=== PATIENT | male | born 1950 | race Caucasian/White ===

== ENCOUNTER 2020-05-02 12:48 | Inpatient (IN) | payer MEDICARE ==
[2020-05-02] MEDS ORDERED: Sodium Chloride 0.9% 1000 ML 1,000 ML IV STA (12:53)
[2020-05-02] MEDS ORDERED: Sodium Chloride 0.9% 1000 ML 1,000 ML ONE (13:02)
[2020-05-02 13:31] LABS: Absolute Neutrophil Ct (ANC) 2.21 (1.4-6.9); BASOPHIL % 0.7 % (0.0-0.4); Basophil (Absolute #) 0.02 (0-0.4); Eosinophil (Absolute #) 0.03 (0-0.5); Hematocrit 41.9 % (42-50); Hemoglobin 14.9 gm/dl (12.5-18.0); Lymphocyte (Absolute #) 0.39 (1.0-4.6); Lymphocytes % 13.6 % (24.0-44.0); Mean Cell Volume 93.3 fl (78-100); Mean Corpuscular Hemoglobin 33.2 pg (26-32); Mean Corpuscular Hgb Concent. 35.6 g/dl (32-36); Monocyte (Absolute #) 0.22 (0.0-1.3); Monocytes % 7.7 % (0.0-12.0); Platelet Count 100 K/mm3 (150-450); Red Blood Count 4.49 M/mm3 (4.1-5.6); White Blood Count 2.9 K/mm3 (4.0-10.5)
[2020-05-02 13:52] LABS: ALBUMIN 2.9 g/dL (3.5-5.0); ALKALINE PHOSPHATASE 66 U/L (38-126); AMYLASE 77 U/L (30-110); ANION GAP 9.3 MEQ/L (5-15); BLOOD UREA NITROGEN 19 mg/dL (9-20); CHLORIDE 83 mmol/L (98-107); CK-Creatinine Phosphokinase 56 U/L (55-170); Calcium 8.4 mg/dL (8.4-10.2); Carbon Dioxide 35 mmol/L (22-30); EST GLOMERULAR FILTRATION RATE > 60.0 ML/MIN; Glucose 123 mg/dL (74-106); LIPASE 250 U/L (23-300); MAGNESIUM 1.7 mg/dL (1.6-2.3); NT PRO BNP 908 pg/mL (0-900); SGOT/AST 43 U/L (17-59); SGPT/ALT 19 U/L (0-50); SODIUM 125 mmol/L (137-145); Total Protein 5.6 g/dL (6.3-8.2)
[2020-05-02 13:53] LABS: Potassium 2.3 mmol/L (3.5-5.1)
[2020-05-02] MEDS ORDERED: K-LYTE 25 MEQ PO ONE (14:28)
[2020-05-02 14:35] LABS: INR 1.21 (0.8-3.0); PROTIME 13.7 SECONDS (8.83-12.87)
[2020-05-02] MEDS ORDERED: K-LYTE 25 MEQ ONE (14:35)
[2020-05-02 14:42] LABS: Slide Review 1 YES
[2020-05-02 15:23] LABS: Appearance CLEAR (CLEAR); Bacteria RARE /HPF (NEGATIVE); Bilirubin SMALL (NEGATIVE); Blood SMALL Ery/ul (0-5); Epithelial Cells RARE /HPF (FEW); Glucose NEGATIVE (NEGATIVE); Ketones NEGATIVE (NEGATIVE); Leukocyte Esterase NEGATIVE (NEGATIVE); Nitrite NEGATIVE (NEGATIVE); Protein,Urine Dip NEGATIVE (Negative); RBC 0-2 /HPF (0-2); Urobilinogen 4 mg/dL (0-1)
[2020-05-02 15:35] LABS: Amphetamine,Urine NEGATIVE (NEGATIVE); Barbiturate,Urine NEGATIVE (NEGATIVE); Benzodiazepine,Urine NEGATIVE (NEGATIVE); Cocaine,Urine NEGATIVE (NEGATIVE); Methadone,Urine NEGATIVE (NEGATIVE); Opiate,Urine NEGATIVE (NEGATIVE); PCP,Urine NEGATIVE (NEGATIVE); THC,Urine NEGATIVE (NEGATIVE)
[2020-05-02 16:20] LABS: INFLUENZA A NEGATIVE (NEGATIVE); INFLUENZA B NEGATIVE (NEGATIVE); RESPIRATORY SYNCTIAL VIRUS NEGATIVE (Negative)
--- NOTE | 2020-05-02 16:45 | ERPHSYRPT ---
- History of Present Illness Time Seen by Provider: 05/02/20 13:00 Patient Subjective Stated Complaint: weakness Triage Nursing Assessment: Patient brought into ED via EMS and transferred to bed with assist of 3. Patient A+O X3. Patient's skin pink, warm and dry. Patient complains of weakness for the past 5 days. Patient states he hasn't been able to get off of his cough for 5 days. Patient also states he fell trying to get up 5 days ago hitting his head. Patient has scabbed abrasion to right side of forehead with scab and left elbow skin tear that is scabbed over. Patient denies pain or discomfort. Lung clear a/p mari. No edema noted. Patient states he is a daily drinker of a pint of boLoglyan and attempted to stop drinking 5 days ago. Physician History: Amrik is a 70-year-old white male longstanding alcoholic who has not drank for 5 days who presents with generalized weakness and he has been n.p.o. for 3 days as well as extreme weakness. He has a fall approximately 5 days ago and then later was unable to get off the couch for 3 days. Their history is difficult to obtain. Timing/Duration: day(s) (5) Severity: moderate Associated Symptoms: denies symptoms, loss of appetite, weakness Allergies/Adverse Reactions: No Known Drug Allergies Allergy (Unverified 05/02/20 12:52) Home Medications: No Reportable Medications [No Reported Medications] 05/02/20 [History] Hx Influenza Vaccination/Date Given: Yes Hx Pneumococcal Vaccination/Date Given: No Immunizations Up to Date: Yes Travel Risk - International Travel Have you traveled outside of the country in past 3 weeks: No - Coronavirus Screening Are you exhibiting any of the following symptoms?: No Close contact with a COVID-19 positive Pt in past 14-21 Days: No - Review of Systems Constitutional: Lethargy, Malaise, Weakness Eyes: No Symptoms Ears, Nose, & Throat: No Symptoms Respiratory: No Symptoms Cardiac: No Symptoms Abdominal/Gastrointestinal: Appetite Changes Genitourinary Symptoms: No Symptoms Musculoskeletal: Arthralgias, Joint Pain, Myalgias Neurological: Dizziness Psychological: Alcohol Abuse Endocrine: No Symptoms Hematologic/Lymphatic: No Symptoms Immunological/Allergic: No Symptoms - Past Medical History Neurological History: No Pertinent History ENT History: No Pertinent History Cardiac History: Hypertension Respiratory History: No Pertinent History Endocrine Medical History: No Pertinent History Musculoskeletal History: No Pertinent History GI Medical History: No Pertinent History History: No Pertinent History Psycho-Social History: No Pertinent History Male Reproductive Disorders: No Pertinent History - Past Surgical History Past Surgical History: Yes Neuro Surgical History: No Pertinent History Cardiac: No Pertinent History Respiratory: No Pertinent History Gastrointestinal: No Pertinent History Genitourinary: No Pertinent History Musculoskeletal: No Pertinent History Male Surgical History: No Pertinent History Other Surgical History: Left eye surgery-ocular lens implant - Social History Smoking Status: Current every day smoker How long have you smoked: years Exposure to second hand smoke: No Drug Use: none Patient Lives Alone: Yes - Nursing Vital Signs Nursing Vital Signs: Initial Vital Signs Temperature 98.6 F 05/02/20 12:53 Pulse Rate 132 H 05/02/20 12:53 Respiratory Rate 20 05/02/20 12:53 Blood Pressure 105/82 05/02/20 12:53 O2 Sat by Pulse Oximetry 100 05/02/20 12:53 Pain Scale Pain Intensity 0 - Physical Exam General Appearance: moderate distress Eye Exam: PERRL/EOMI, eyes nml inspection Ears, Nose, Throat Exam: dry mucous membranes Neck Exam: normal inspection, non-tender, supple, full range of motion Respiratory Exam: rhonchi, No respiratory distress Cardiovascular Exam: regular rate/rhythm, normal heart sounds Gastrointestinal/Abdomen Exam: tenderness Extremity Exam: normal inspection, normal range of motion Neurologic Exam: alert, disoriented, confusion, depressed mood/affect, motor weakness Skin Exam: other (Skin tears) SpO2 Interpretation: normal SpO2: 96 O2 Delivery: Room Air - Course Nursing assessment & vital signs reviewed: Yes EKG Interpreted by Me: RATE ([id number]), Sinus Tach, Non-specific ST Changes, Other (Many) - CT Exams Head CT Interpretation: Negative, Tele-radiologist Report Abdomen/Pelvis CT Interpretation: Negative, Tele-radiologist Report Ordered Tests: Active Orders 24 hr Category Date Time Status EKG-ER Only STAT Care 05/02/20 12:53 Active IV Insertion STAT Care 05/02/20 12:53 Active ABDOMEN AND PELVIS W/0 CONTRAS [CT] Stat Exams 05/02/20 12:54 Taken CHEST 1 VIEW (PORTABLE) Stat Exams 05/02/20 12:54 Taken HEAD WITHOUT CONTRAST [CT] Stat Exams 05/02/20 14:33 Taken AMYLASE [facility] 05/02/20 13:10 Completed BLOOD CULTURE [facility] 05/02/20 13:21 Received CBC W DIFF [facility] 05/02/20 13:10 Completed CK-Creatinine Phosphokinase [facility] 05/02/20 13:10 Completed CMP [facility] 05/02/20 13:10 Completed D-DIMER QUANTITATIVE [facility] 05/02/20 13:10 Completed Erythrocyte Sedimentation Rate [facility] 05/02/20 13:10 Completed LIPASE [facility] 05/02/20 13:10 Completed Lactic Acid [facility] 05/02/20 13:16 Completed MAGNESIUM [facility] 05/02/20 13:10 Completed NT PRO BNP [facility] 05/02/20 13:10 Completed PROTIME WITH INR [facility] 05/02/20 13:10 Completed TROPONIN Q3H Lab 05/02/20 13:00 Completed TROPONIN Q3H Lab 05/02/20 15:39 Completed TROPONIN Q3H Lab 05/02/20 19:00 Ordered TROPONIN Q3H Lab 05/02/20 22:00 Ordered TROPONIN Q3H Lab 05/03/20 01:00 Ordered UA W/RFX UR CULTURE [facility] 05/02/20 15:00 Completed Urine Triage Profile [facility] 05/02/20 15:00 Completed Medication Summary Discontinued Medications Generic Name Dose Route Start Last Admin Trade Name Magdalenoq PRN Reason Stop Dose Admin Sodium Chloride 1,000 mls @ 999 mls/hr 05/02/20 12:53 05/02/20 14:33 Sodium Chloride 0.9% 1000 Ml IV 05/02/20 13:53 Infused .Q1H1M STA Infusion Sodium Chloride Confirm 05/02/20 13:02 Sodium Chloride 0.9% 1000 Ml Administered 05/02/20 13:03 Dose 1,000 mls @ ud .ROUTE .STK-MED ONE Potassium Bicarbonate 50 meq 05/02/20 14:28 05/02/20 14:36 K-Lyte 25 Meq PO 05/02/20 14:29 50 meq STAT ONE Administration Potassium Bicarbonate Confirm 05/02/20 14:35 K-Lyte 25 Meq Administered 05/02/20 14:36 Dose 50 meq .ROUTE .STK-MED ONE Lab/Rad Data: Laboratory Result Diagrams 05/02/20 13:10 05/02/20 13:10 Laboratory Results 05/02/20 05/02/20 05/02/20 Range/Units 15:39 15:34 15:00 WBC (4.0-10.5) K/mm3 RBC (4.1-5.6) M/mm3 Hgb (12.5-18.0) gm/dl Hct (42-50) % MCV (78-100) fl MCH (26-32) pg MCHC (32-36) g/dl RDW (11.5-14.0) % Plt Count (150-450) K/mm3 MPV (7.5-11.0) fl Gran % (36.0-66.0) % Eos # (Auto) (0-0.5) Absolute Lymphs (auto) (1.0-4.6) Absolute Monos (auto) (0.0-1.3) Lymphocytes % (24.0-44.0) % Monocytes % (0.0-12.0) % Eosinophils % (0.00-5.0) % Basophils % (0.0-0.4) % Absolute Granulocytes (1.4-6.9) Basophils # (0-0.4) ESR (0-15) mm/hr PT (8.83-12.87) SECONDS INR (0.8-3.0) D-Dimer (215-500) ng/mL Sodium (137-145) mmol/L Potassium (3.5-5.1) mmol/L Chloride (98-107) mmol/L Carbon Dioxide (22-30) mmol/L Anion Gap (5-15) MEQ/L BUN (9-20) mg/dL Creatinine (0.66-1.25) mg/dL Estimated GFR ML/MIN Glucose (74-106) mg/dL Lactic Acid (0.4-2.0) Calcium (8.4-10.2) mg/dL Magnesium (1.6-2.3) mg/dL Total Bilirubin (0.2-1.3) mg/dL AST (17-59) U/L ALT (0-50) U/L Alkaline Phosphatase (38-126) U/L Creatine Kinase (55-170) U/L Troponin I < 0.012 (0.000-0.034) ng/mL NT-Pro-B Natriuret Pep (0-900) pg/mL Serum Total Protein (6.3-8.2) g/dL Albumin (3.5-5.0) g/dL Amylase (30-110) U/L Lipase (23-300) U/L Urine Color (YELLOW) Urine Appearance (CLEAR) Urine pH (5-6) Ur Specific Glen (1.005-1.025) Urine Protein (Negative) Urine Ketones (NEGATIVE) Urine Blood (0-5) Pino/ul Urine Nitrite (NEGATIVE) Urine Bilirubin (NEGATIVE) Urine Urobilinogen (0-1) mg/dL Ur Leukocyte Esterase (NEGATIVE) Urine WBC (Auto) (0-5) /HPF Urine RBC (Auto) (0-2) /HPF U Epithel Cells (Auto) (FEW) /HPF Urine Bacteria (Auto) (NEGATIVE) /HPF Urine Culture Reflexed (NO) Urine Glucose (NEGATIVE) mg/dL Urine Opiates Level NEGATIVE (NEGATIVE) Ur Methadone NEGATIVE (NEGATIVE) Urine Barbiturates NEGATIVE (NEGATIVE) Ur Phencyclidine (PCP) NEGATIVE (NEGATIVE) Urine Amphetamine NEGATIVE (NEGATIVE) U Benzodiazepine Level NEGATIVE (NEGATIVE) Urine Cocaine NEGATIVE (NEGATIVE) Urine Marijuana (THC) NEGATIVE (NEGATIVE) Influenza Type A Ag NEGATIVE (NEGATIVE) Influenza Type B Ag NEGATIVE (NEGATIVE) RSV (PCR) NEGATIVE (Negative) SARS-CoV-2 (PCR) NEGATIVE (NEGATIVE) Slides for Path Review 05/02/20 05/02/20 05/02/20 Range/Units 15:00 13:16 13:10 WBC (4.0-10.5) K/mm3 RBC (4.1-5.6) M/mm3 Hgb (12.5-18.0) gm/dl Hct (42-50) % MCV (78-100) fl MCH (26-32) pg MCHC (32-36) g/dl RDW (11.5-14.0) % Plt Count (150-450) K/mm3 MPV (7.5-11.0) fl Gran % (36.0-66.0) % Eos # (Auto) (0-0.5) Absolute Lymphs (auto) (1.0-4.6) Absolute Monos (auto) (0.0-1.3) Lymphocytes % (24.0-44.0) % Monocytes % (0.0-12.0) % Eosinophils % (0.00-5.0) % Basophils % (0.0-0.4) % Absolute Granulocytes (1.4-6.9) Basophils # (0-0.4) ESR (0-15) mm/hr PT (8.83-12.87) SECONDS INR (0.8-3.0) D-Dimer 499 (215-500) ng/mL Sodium (137-145) mmol/L Potassium (3.5-5.1) mmol/L Chloride (98-107) mmol/L Carbon Dioxide (22-30) mmol/L Anion Gap (5-15) MEQ/L BUN (9-20) mg/dL Creatinine (0.66-1.25) mg/dL Estimated GFR ML/MIN Glucose (74-106) mg/dL Lactic Acid 1.5 (0.4-2.0) Calcium (8.4-10.2) mg/dL Magnesium (1.6-2.3) mg/dL Total Bilirubin (0.2-1.3) mg/dL AST (17-59) U/L ALT (0-50) U/L Alkaline Phosphatase (38-126) U/L Creatine Kinase (55-170) U/L Troponin I (0.000-0.034) ng/mL NT-Pro-B Natriuret Pep (0-900) pg/mL Serum Total Protein (6.3-8.2) g/dL Albumin (3.5-5.0) g/dL Amylase (30-110) U/L Lipase (23-300) U/L Urine Color CHECO (YELLOW) Urine Appearance CLEAR (CLEAR) Urine pH 6.0 (5-6) Ur Specific Glen 1.020 (1.005-1.025) Urine Protein NEGATIVE (Negative) Urine Ketones NEGATIVE (NEGATIVE) Urine Blood SMALL (0-5) Pino/ul Urine Nitrite NEGATIVE (NEGATIVE) Urine Bilirubin SMALL (NEGATIVE) Urine Urobilinogen 4 (0-1) mg/dL Ur Leukocyte Esterase NEGATIVE (NEGATIVE) Urine WBC (Auto) 3-5 (0-5) /HPF Urine RBC (Auto) 0-2 (0-2) /HPF U Epithel Cells (Auto) RARE (FEW) /HPF Urine Bacteria (Auto) RARE (NEGATIVE) /HPF Urine Culture Reflexed NO (NO) Urine Glucose NEGATIVE (NEGATIVE) mg/dL Urine Opiates Level (NEGATIVE) Ur Methadone (NEGATIVE) Urine Barbiturates (NEGATIVE) Ur Phencyclidine (PCP) (NEGATIVE) Urine Amphetamine (NEGATIVE) U Benzodiazepine Level (NEGATIVE) Urine Cocaine (NEGATIVE) Urine Marijuana (THC) (NEGATIVE) Influenza Type A Ag (NEGATIVE) Influenza Type B Ag (NEGATIVE) RSV (PCR) (Negative) SARS-CoV-2 (PCR) (NEGATIVE) Slides for Path Review 05/02/20 05/02/20 05/02/20 Range/Units 13:10 13:10 13:10 WBC (4.0-10.5) K/mm3 RBC (4.1-5.6) M/mm3 Hgb (12.5-18.0) gm/dl Hct (42-50) % MCV (78-100) fl MCH (26-32) pg MCHC (32-36) g/dl RDW (11.5-14.0) % Plt Count (150-450) K/mm3 MPV (7.5-11.0) fl Gran % (36.0-66.0) % Eos # (Auto) (0-0.5) Absolute Lymphs (auto) (1.0-4.6) Absolute Monos (auto) (0.0-1.3) Lymphocytes % (24.0-44.0) % Monocytes % (0.0-12.0) % Eosinophils % (0.00-5.0) % Basophils % (0.0-0.4) % Absolute Granulocytes (1.4-6.9) Basophils # (0-0.4) ESR 22 H (0-15) mm/hr PT 13.7 H (8.83-12.87) SECONDS INR 1.21 (0.8-3.0) D-Dimer (215-500) ng/mL Sodium 125 L (137-145) mmol/L Potassium 2.3 L* (3.5-5.1) mmol/L Chloride 83 L (98-107) mmol/L Carbon Dioxide 35 H (22-30) mmol/L Anion Gap 9.3 (5-15) MEQ/L BUN 19 (9-20) mg/dL Creatinine 1.00 (0.66-1.25) mg/dL Estimated GFR > 60.0 ML/MIN Glucose 123 H (74-106) mg/dL Lactic Acid (0.4-2.0) Calcium 8.4 (8.4-10.2) mg/dL Magnesium 1.7 (1.6-2.3) mg/dL Total Bilirubin 2.40 H (0.2-1.3) mg/dL AST 43 (17-59) U/L ALT 19 (0-50) U/L Alkaline Phosphatase 66 (38-126) U/L Creatine Kinase 56 (55-170) U/L Troponin I (0.000-0.034) ng/mL NT-Pro-B Natriuret Pep 908 H (0-900) pg/mL Serum Total Protein 5.6 L (6.3-8.2) g/dL Albumin 2.9 L (3.5-5.0) g/dL Amylase 77 (30-110) U/L Lipase 250 (23-300) U/L Urine Color (YELLOW) Urine Appearance (CLEAR) Urine pH (5-6) Ur Specific Glen (1.005-1.025) Urine Protein (Negative) Urine Ketones (NEGATIVE) Urine Blood (0-5) Pino/ul Urine Nitrite (NEGATIVE) Urine Bilirubin (NEGATIVE) Urine Urobilinogen (0-1) mg/dL Ur Leukocyte Esterase (NEGATIVE) Urine WBC (Auto) (0-5) /HPF Urine RBC (Auto) (0-2) /HPF U Epithel Cells (Auto) (FEW) /HPF Urine Bacteria (Auto) (NEGATIVE) /HPF Urine Culture Reflexed (NO) Urine Glucose (NEGATIVE) mg/dL Urine Opiates Level (NEGATIVE) Ur Methadone (NEGATIVE) Urine Barbiturates (NEGATIVE) Ur Phencyclidine (PCP) (NEGATIVE) Urine Amphetamine (NEGATIVE) U Benzodiazepine Level (NEGATIVE) Urine Cocaine (NEGATIVE) Urine Marijuana (THC) (NEGATIVE) Influenza Type A Ag (NEGATIVE) Influenza Type B Ag (NEGATIVE) RSV (PCR) (Negative) SARS-CoV-2 (PCR) (NEGATIVE) Slides for Path Review 05/02/20 05/02/20 Range/Units 13:10 13:00 WBC 2.9 L (4.0-10.5) K/mm3 RBC 4.49 (4.1-5.6) M/mm3 Hgb 14.9 (12.5-18.0) gm/dl Hct 41.9 L (42-50) % MCV 93.3 (78-100) fl MCH 33.2 H (26-32) pg MCHC 35.6 (32-36) g/dl RDW 13.0 (11.5-14.0) % Plt Count 100 L (150-450) K/mm3 MPV 11.0 (7.5-11.0) fl Gran % 77.0 H (36.0-66.0) % Eos # (Auto) 0.03 (0-0.5) Absolute Lymphs (auto) 0.39 L (1.0-4.6) Absolute Monos (auto) 0.22 (0.0-1.3) Lymphocytes % 13.6 L (24.0-44.0) % Monocytes % 7.7 (0.0-12.0) % Eosinophils % 1.0 (0.00-5.0) % Basophils % 0.7 (0.0-0.4) % Absolute Granulocytes 2.21 (1.4-6.9) Basophils # 0.02 (0-0.4) ESR (0-15) mm/hr PT (8.83-12.87) SECONDS INR (0.8-3.0) D-Dimer (215-500) ng/mL Sodium (137-145) mmol/L Potassium (3.5-5.1) mmol/L Chloride (98-107) mmol/L Carbon Dioxide (22-30) mmol/L Anion Gap (5-15) MEQ/L BUN (9-20) mg/dL Creatinine (0.66-1.25) mg/dL Estimated GFR ML/MIN Glucose (74-106) mg/dL Lactic Acid (0.4-2.0) Calcium (8.4-10.2) mg/dL Magnesium (1.6-2.3) mg/dL Total Bilirubin (0.2-1.3) mg/dL AST (17-59) U/L ALT (0-50) U/L Alkaline Phosphatase (38-126) U/L Creatine Kinase (55-170) U/L Troponin I < 0.012 (0.000-0.034) ng/mL NT-Pro-B Natriuret Pep (0-900) pg/mL Serum Total Protein (6.3-8.2) g/dL Albumin (3.5-5.0) g/dL Amylase (30-110) U/L Lipase (23-300) U/L Urine Color (YELLOW) Urine Appearance (CLEAR) Urine pH (5-6) Ur Specific Glen (1.005-1.025) Urine Protein (Negative) Urine Ketones (NEGATIVE) Urine Blood (0-5) Pino/ul Urine Nitrite (NEGATIVE) Urine Bilirubin (NEGATIVE) Urine Urobilinogen (0-1) mg/dL Ur Leukocyte Esterase (NEGATIVE) Urine WBC (Auto) (0-5) /HPF Urine RBC (Auto) (0-2) /HPF U Epithel Cells (Auto) (FEW) /HPF Urine Bacteria (Auto) (NEGATIVE) /HPF Urine Culture Reflexed (NO) Urine Glucose (NEGATIVE) mg/dL Urine Opiates Level (NEGATIVE) Ur Methadone (NEGATIVE) Urine Barbiturates (NEGATIVE) Ur Phencyclidine (PCP) (NEGATIVE) Urine Amphetamine (NEGATIVE) U Benzodiazepine Level (NEGATIVE) Urine Cocaine (NEGATIVE) Urine Marijuana (THC) (NEGATIVE) Influenza Type A Ag (NEGATIVE) Influenza Type B Ag (NEGATIVE) RSV (PCR) (Negative) SARS-CoV-2 (PCR) (NEGATIVE) Slides for Path Review YES - Progress Progress: unchanged Discussed with Dr.: Staton - Departure Departure Disposition: In-patient Admission Clinical Impression: Hypokalemia, Hyponatremia, Dehydration Condition: Fair Critical Care Time: No Referrals: DOCTOR,NO FAMILY [Primary Care Provider] -
[2020-05-02] MEDS: Sodium Chloride 0.9% 1000 ML 1,000 ML IV SCH (17:48)
[2020-05-02] MEDS: POTASSIUM CHLORIDE 20 mEq IN WATER 100ML 20 MEQ/100 ML BAG IV SCH ×2 (20:03→23:31)
--- NOTE | 2020-05-02 20:25 | XRAY ---
Indication: Weakness. Status post fall 5 days ago. Multiple contiguous axial images obtained through the head without contrast. Comparison: None Age-appropriate global atrophy and mild periventricular degenerative micro-ischemia bilaterally. No acute intracranial hemorrhage, abnormal extra-axial fluid collection, or mass effect. Fourth ventricle is midline without hydrocephalus. Bony calvarium intact. Partial opacification inferior right mastoid air cells presumed inflammatory. Visualized paranasal sinuses are clear. Impression: 1. Nonacute senile brain. 2. Partial opacification right mastoid air cells presumed inflammatory. Comment: Preliminary interpretation was made by [facility]. No critical discrepancy.
--- NOTE | 2020-05-02 20:31 | XRAY ---
Indication: Anorexia. Weakness. Multiple contiguous axial images obtained through the abdomen and pelvis without contrast as ordered. Comparison: None Lung bases demonstrates minimal bibasilar atelectasis/scarring in medial left base calcified granuloma. No infiltrate or effusion. Heart is not enlarged. Noncontrasted stomach and bowel loops appear nonobstructed. Normal appendix. Scattered sigmoid diverticulosis without diverticulitis. Liver demonstrates diffuse patchy hypoattenuations, possibly due to steatosis. Hepatic masses are not completely excluded on this noncontrast exam. Nonobstructing punctate right renal calculus. No free fluid/air. Remaining gallbladder, pancreas, spleen, adrenal glands, kidneys, ureters, bladder, and uterus appear unremarkable for noncontrast exam. Moderate aortoiliac calcifications without AAA. Osseous structures intact with mild/moderate lower lumbar degenerative disc disease. No ventral or inguinal hernias. Impression: 1. Diffuse patchy hepatic hypoattenuations possibly due to steatosis. Masses not completely excluded on this noncontrast exam. 2. Sigmoid diverticulosis and nonobstructing right renal micro-calculus. 3. Incidental lower lumbar degenerative disc disease better evaluated with outpatient MRI if clinically warranted. Comment: Preliminary interpretation was made by [facility]. No critical discrepancy.
--- NOTE | 2020-05-02 20:31 | XRAY ---
Indication: Pain. Comparison: None Portable chest hyperinflated and clear with incidental medial left base calcified granuloma. Heart is not enlarged. Bony thorax intact.
[2020-05-03 01:31] LABS: Hematocrit 39.4 % (42-50); Hemoglobin 13.7 gm/dl (12.5-18.0); Mean Cell Volume 94.7 fl (78-100); Mean Corpuscular Hemoglobin 32.9 pg (26-32); Mean Corpuscular Hgb Concent. 34.8 g/dl (32-36); Mean Platelet Volume 10.6 fl (7.5-11.0); Platelet Count 96 K/mm3 (150-450); Red Blood Count 4.16 M/mm3 (4.1-5.6); White Blood Count 3.1 K/mm3 (4.0-10.5)
[2020-05-03 01:55] LABS: ALBUMIN 2.7 g/dL (3.5-5.0); ALKALINE PHOSPHATASE 64 U/L (38-126); ANION GAP 6.7 MEQ/L (5-15); BLOOD UREA NITROGEN 17 mg/dL (9-20); CHLORIDE 86 mmol/L (98-107); Calcium 8.3 mg/dL (8.4-10.2); Carbon Dioxide 37 mmol/L (22-30); Creatinine 1 1.02 mg/dL (0.66-1.25); EST GLOMERULAR FILTRATION RATE > 60.0 ML/MIN; Glucose 107 mg/dL (74-106); SGOT/AST 45 U/L (17-59); SGPT/ALT 19 U/L (0-50); SODIUM 126 mmol/L (137-145); Total Protein 5.3 g/dL (6.3-8.2)
[2020-05-03 01:57] LABS: Potassium 2.8 mmol/L (3.5-5.1)
[2020-05-03 04:36] LABS: Eosinophil 5 % (0.00-3.0); Lymphocytes 17 % (24-44); Monocyte 4 % (0.0-12.0); Neutrophils 74 % (36.-66.); Platelet Estimate DECREASED (NORMAL); Total Cells Counted 100
[2020-05-03] MEDS: Sodium Chloride 0.9% 1000 ML 1,000 ML IV SCH ×3 (07:51→21:11)
[2020-05-03] MEDS: K-LYTE 25 MEQ PO SCH (09:21)
--- NOTE | 2020-05-03 21:03 | PCM.HP ---
History of Present Illness - Chief Complaint Chief Complaint: hypokalemia, hyponatremia, dehydration. Date: 05/03/20 History of Present Illness: is a 69 year old male seen and examined today following ER admission for hypokalemia, hyponatremia and dehydration. Patient reports that he was trying to make some lifestyle changes and decided to stop drinking alcohol. He reports he is an everyday drinker and drinks a pint of bourbon daily and that he has done this for more than 40 years. He reports that he remembers falling and that he hit his head on the coffee table. Patient reports that he has some pain where he hit his head but that it has improved. Patient reports he has had a decreased appetite and reports some recent weight loss. Patient reports that he has been depressed. He denies any thoughts of hurting himself or others but at times feels it would be ok if he wasnt around. He denies having a plan to harm himself. Patient reports he has gone through treatment programs before [place] of state. He reports he was sober for 28 days and then 4.5 years. Medications & Allergies Home Medications: Home Medication List No Reportable Medications [No Reported Medications] 05/02/20 [History Confirmed 05/02/20] Allergies/Adverse Reactions: Allergies Allergy/AdvReac Type Severity Reaction Status Date / Time No Known Drug Allergies Allergy Unverified 05/02/20 12:52 - Past Medical History Neurological History: No Pertinent History ENT History: No Pertinent History Cardiac History: Hypertension Respiratory History: No Pertinent History Endocrine Medical History: No Pertinent History Musculoskelatal History: No Pertinent History GI Medical History: Hernia History: No Pertinent History Pyscho-Social History: Anxiety, Depression, Other Male Reproductive Disorders: No Pertinent History Comment: ETOH abuse - Past Surgical History Past Surgical History: Yes Neuro Surgical History: No Pertinent History Cardiac History: No Pertinent History Respiratory Surgery: No Pertinent History GI Surgical History: Hernia Repair Genitourinary Surgical Hx: No Pertinent History Musculskeletal Surgical Hx: No Pertinent History Male Surgical History: No Pertinent History Other Surgical History: Left eye surgery-ocular lens implant - Social History Smoking Status: Current every day smoker How long have you smoked: years Exposure to second hand smoke: No Alcohol: Heavy, Daily Drug Use: none - Physical Exam Vital Signs: Vital Signs - 24 hr Temp Pulse Resp BP Pulse Ox 05/03/20 19:37 97.7 F 82 18 121/80 100 05/03/20 16:00 98.0 F 80 18 120/78 90 L 05/03/20 12:00 98.0 F 74 18 130/78 98 05/03/20 08:00 97.8 F 110 H 18 123/77 98 05/03/20 04:03 97.9 F 82 16 135/89 97 05/03/20 03:53 18 05/03/20 00:00 97.9 F 81 16 115/78 98 Wound Assessment: Skin/Wound Assessment Wound/Incision Assessment Start: 05/02/20 18:19 Text: Status: Active Freq: Q6H Protocol: Document 05/03/20 17:00 BA (Rec: 05/03/20 18:53 BA [id number]) Wound/Incision Assessment Left Arm Wound Assessment Shift Assessment Wound Type Skin Tear Dressing Status Changed Drainage Amount Minimal General Appearance Unapproximated Surrounding Tissue [place] Comment tegaderm Results - Labs Lab/Micro Results: Lab Results-Last 24 Hours 05/02/20 05/03/20 05/03/20 Range/Units 20:10 01:15 01:15 WBC (4.0-10.5) K/mm3 RBC (4.1-5.6) M/mm3 Hgb (12.5-18.0) gm/dl Hct (42-50) % MCV (78-100) fl MCH (26-32) pg MCHC (32-36) g/dl RDW (11.5-14.0) % Plt Count (150-450) K/mm3 MPV (7.5-11.0) fl Segmented Neutrophils (36.-66.) % Lymphocytes (Manual) (24-44) % Monocytes (Manual) (0.0-12.0) % Eosinophils (Manual) (0.00-3.0) % Platelet Estimate (NORMAL) RBC Morphology Sodium 126 L (137-145) mmol/L Potassium 2.8 L* D (3.5-5.1) mmol/L Chloride 86 L (98-107) mmol/L Carbon Dioxide 37 H (22-30) mmol/L Anion Gap 6.7 (5-15) MEQ/L BUN 17 (9-20) mg/dL Creatinine 1.02 (0.66-1.25) mg/dL Estimated GFR > 60.0 ML/MIN Glucose 107 H (74-106) mg/dL Calcium 8.3 L (8.4-10.2) mg/dL Total Bilirubin 2.30 H (0.2-1.3) mg/dL AST 45 (17-59) U/L ALT 19 (0-50) U/L Alkaline Phosphatase 64 (38-126) U/L Troponin I < 0.012 < 0.012 (0.000-0.034) ng/mL Serum Total Protein 5.3 L (6.3-8.2) g/dL Albumin 2.7 L (3.5-5.0) g/dL 05/03/20 05/03/20 Range/Units 01:15 05:50 WBC 3.1 L (4.0-10.5) K/mm3 RBC 4.16 (4.1-5.6) M/mm3 Hgb 13.7 (12.5-18.0) gm/dl Hct 39.4 L (42-50) % MCV 94.7 (78-100) fl MCH 32.9 H (26-32) pg MCHC 34.8 (32-36) g/dl RDW 13.0 (11.5-14.0) % Plt Count 96 L (150-450) K/mm3 MPV 10.6 (7.5-11.0) fl Segmented Neutrophils 74 H (36.-66.) % Lymphocytes (Manual) 17 L (24-44) % Monocytes (Manual) 4 (0.0-12.0) % Eosinophils (Manual) 5 H (0.00-3.0) % Platelet Estimate DECREASED (NORMAL) RBC Morphology NORMAL Sodium (137-145) mmol/L Potassium 3.4 L D (3.5-5.1) mmol/L Chloride (98-107) mmol/L Carbon Dioxide (22-30) mmol/L Anion Gap (5-15) MEQ/L BUN (9-20) mg/dL Creatinine (0.66-1.25) mg/dL Estimated GFR ML/MIN Glucose (74-106) mg/dL Calcium (8.4-10.2) mg/dL Total Bilirubin (0.2-1.3) mg/dL AST (17-59) U/L ALT (0-50) U/L Alkaline Phosphatase (38-126) U/L Troponin I (0.000-0.034) ng/mL Serum Total Protein (6.3-8.2) g/dL Albumin (3.5-5.0) g/dL Microbiology 05/02/20 13:21 Blood Culture - Preliminary Blood NO GROWTH TO DATE 05/02/20 13:21 Blood Culture - Preliminary Blood NO GROWTH TO DATE - Radiology Impressions Radiology Exams & Impressions: Radiology Procedures Category Date Time Status ABDOMEN AND PELVIS W/0 CONTRAS [CT] Stat Exams 05/02/20 12:54 Completed CHEST 1 VIEW (PORTABLE) Stat Exams 05/02/20 12:54 Completed HEAD WITHOUT CONTRAST [CT] Stat Exams 05/02/20 14:33 Completed
[2020-05-03 22:32] LABS: INR 1.22 (0.8-3.0); PROTIME 13.8 SECONDS (8.83-12.87)
[2020-05-03 22:34] LABS: PTT 42.6 SECONDS (24.1-36.1)
[2020-05-04] MEDS: Sodium Chloride 0.9% 1000 ML 1,000 ML IV SCH ×5 (03:56→17:38)
[2020-05-04 05:20] LABS: Absolute Neutrophil Ct (ANC) 1.84 (1.4-6.9); BASOPHIL % 0.8 % (0.0-0.4); Basophil (Absolute #) 0.02 (0-0.4); Eosinophil % 1.9 % (0.00-5.0); Eosinophil (Absolute #) 0.05 (0-0.5); Hematocrit 32.2 % (42-50); Lymphocyte (Absolute #) 0.53 (1.0-4.6); Lymphocytes % 20.2 % (24.0-44.0); Mean Cell Volume 96.7 fl (78-100); Mean Corpuscular Hgb Concent. 34.2 g/dl (32-36); Mean Platelet Volume 10.6 fl (7.5-11.0); Monocyte (Absolute #) 0.19 (0.0-1.3); Monocytes % 7.2 % (0.0-12.0); Neutrophil % 69.9 % (36.0-66.0); Platelet Count 100 K/mm3 (150-450); Red Blood Count 3.33 M/mm3 (4.1-5.6); Red Cell Distribution Width 12.8 % (11.5-14.0); White Blood Count 2.6 K/mm3 (4.0-10.5)
[2020-05-04 05:35] LABS: ALBUMIN 2.2 g/dL (3.5-5.0); BILIRUBIN,TOTAL 1.3 mg/dL (0.2-1.3); Direct Bilirubin 0.2 mg/dL (0.0-0.4); Total Protein 4.3 g/dL (6.3-8.2)
[2020-05-04 05:39] LABS: ALBUMIN 2.3 g/dL (3.5-5.0); ALKALINE PHOSPHATASE 54 U/L (38-126); ANION GAP 5.7 MEQ/L (5-15); BLOOD UREA NITROGEN 10 mg/dL (9-20); CHLORIDE 95 mmol/L (98-107); Calcium 7.7 mg/dL (8.4-10.2); Carbon Dioxide 31 mmol/L (22-30); Creatinine 1 0.78 mg/dL (0.66-1.25); EST GLOMERULAR FILTRATION RATE > 60.0 ML/MIN; Glucose 101 mg/dL (74-106); SGOT/AST 54 U/L (17-59); SGPT/ALT 24 U/L (0-50); SODIUM 129 mmol/L (137-145); Total Protein 4.6 g/dL (6.3-8.2)
[2020-05-04 06:04] LABS: Potassium 2.8 mmol/L (3.5-5.1)
[2020-05-04] MEDS: POTASSIUM CHLORIDE 20 mEq IN WATER 100ML 20 MEQ/100 ML BAG IV SCH ×2 (06:26→08:14)
[2020-05-04 06:42] LABS: Folate (Folic Acid) 2.98 ng/mL (2.76 - >20)
--- NOTE | 2020-05-04 09:02 | PCM.NOTE ---
Date and Time: 05/04/20901 Objective Exam Wound Assessment: Skin/Wound Assessment Wound/Incision Assessment Start: 05/02/20 18:19 Text: Status: Active Freq: Q6H Protocol: Document 05/04/20 05:00 KX (Rec: 05/04/20 05:45 KX [id number]) Wound/Incision Assessment Left Arm Wound Assessment Shift Assessment Wound Type Skin Tear Dressing Status Dry & Intact Comment tegaderm Wound Photo Photo Taken No OBJECTIVE DATA Vital Signs: Vital Signs - 24 hr Temp Pulse Resp BP Pulse Ox 05/04/20 08:00 16 05/04/20 07:49 98.1 F 78 13 134/87 99 05/04/20 04:00 97.5 F 79 18 125/79 99 05/04/20 00:00 98.7 F 80 16 154/97 100 05/03/20 20:00 18 05/03/20 19:37 97.7 F 82 18 121/80 100 05/03/20 16:00 98.0 F 80 18 120/78 90 L 05/03/20 12:00 98.0 F 74 18 130/78 98 Pain Assessment - Last Documented Pain Intensity 0 Intake and Output: Intake & Output 05/01/20 05/02/20 05/03/20 05/04/20 11:59 11:59 11:59 11:59 Intake Total 1121 4297 Output Total 320 1725 Balance 801 2572 Weight 62 kg 64.8 kg Lab Results: Lab Results-Last 24 Hours 05/03/20 05/03/20 05/04/20 Range/Units 22:22 22:22 04:40 WBC 2.6 L (4.0-10.5) K/mm3 RBC 3.33 L (4.1-5.6) M/mm3 Hgb 11.0 L (12.5-18.0) gm/dl Hct 32.2 L (42-50) % MCV 96.7 (78-100) fl MCH 33.0 H (26-32) pg MCHC 34.2 (32-36) g/dl RDW 12.8 (11.5-14.0) % Plt Count 100 L (150-450) K/mm3 MPV 10.6 (7.5-11.0) fl Gran % 69.9 H (36.0-66.0) % Eos # (Auto) 0.05 (0-0.5) Absolute Lymphs (auto) 0.53 L (1.0-4.6) Absolute Monos (auto) 0.19 (0.0-1.3) Lymphocytes % 20.2 L (24.0-44.0) % Monocytes % 7.2 (0.0-12.0) % Eosinophils % 1.9 (0.00-5.0) % Basophils % 0.8 (0.0-0.4) % Absolute Granulocytes 1.84 (1.4-6.9) Basophils # 0.02 (0-0.4) PT 13.8 H (8.83-12.87) SECONDS INR 1.22 (0.8-3.0) APTT 42.6 H (24.1-36.1) SECONDS Sodium (137-145) mmol/L Potassium (3.5-5.1) mmol/L Chloride (98-107) mmol/L Carbon Dioxide (22-30) mmol/L Anion Gap (5-15) MEQ/L BUN (9-20) mg/dL Creatinine (0.66-1.25) mg/dL Estimated GFR ML/MIN Glucose (74-106) mg/dL Calcium (8.4-10.2) mg/dL Total Bilirubin (0.2-1.3) mg/dL Direct Bilirubin (0.0-0.4) mg/dL AST (17-59) U/L ALT (0-50) U/L Alkaline Phosphatase (38-126) U/L Ammonia < 9 L (9-30) umol/L Serum Total Protein (6.3-8.2) g/dL Albumin (3.5-5.0) g/dL Vitamin B12 (239-931) pg/mL Folic Acid (2.76 - >20) ng/mL Slides for Path Review YES 05/04/20 05/04/20 05/04/20 Range/Units 04:40 04:40 04:40 WBC (4.0-10.5) K/mm3 RBC (4.1-5.6) M/mm3 Hgb (12.5-18.0) gm/dl Hct (42-50) % MCV (78-100) fl MCH (26-32) pg MCHC (32-36) g/dl RDW (11.5-14.0) % Plt Count (150-450) K/mm3 MPV (7.5-11.0) fl Gran % (36.0-66.0) % Eos # (Auto) (0-0.5) Absolute Lymphs (auto) (1.0-4.6) Absolute Monos (auto) (0.0-1.3) Lymphocytes % (24.0-44.0) % Monocytes % (0.0-12.0) % Eosinophils % (0.00-5.0) % Basophils % (0.0-0.4) % Absolute Granulocytes (1.4-6.9) Basophils # (0-0.4) PT (8.83-12.87) SECONDS INR (0.8-3.0) APTT (24.1-36.1) SECONDS Sodium 129 L (137-145) mmol/L Potassium 2.8 L* (3.5-5.1) mmol/L Chloride 95 L (98-107) mmol/L Carbon Dioxide 31 H (22-30) mmol/L Anion Gap 5.7 (5-15) MEQ/L BUN 10 (9-20) mg/dL Creatinine 0.78 (0.66-1.25) mg/dL Estimated GFR > 60.0 ML/MIN Glucose 101 (74-106) mg/dL Calcium 7.7 L (8.4-10.2) mg/dL Total Bilirubin 1.30 1.30 (0.2-1.3) mg/dL Direct Bilirubin 0.2 (0.0-0.4) mg/dL AST 54 55 (17-59) U/L ALT 24 22 (0-50) U/L Alkaline Phosphatase 54 54 (38-126) U/L Ammonia (9-30) umol/L Serum Total Protein 4.6 L 4.3 L (6.3-8.2) g/dL Albumin 2.3 L 2.2 L (3.5-5.0) g/dL Vitamin B12 857 (239-931) pg/mL Folic Acid 2.98 (2.76 - >20) ng/mL Slides for Path Review Radiology Exams: Radiology Procedures Category Date Time Status ABDOMEN AND PELVIS W/0 CONTRAS [CT] Stat Exams 05/02/20 12:54 Completed CHEST 1 VIEW (PORTABLE) Stat Exams 05/02/20 12:54 Completed HEAD WITHOUT CONTRAST [CT] Stat Exams 05/02/20 14:33 Completed Multi-Disciplinary Progress Notes: Multi-Disciplinary Progress Notes 05/03/20 15:10 (created 05/03/20 15:55) Case Management Note by Sarah Jonas DR. ROUNDED AND EVALUATED, REPORTS THAT SHE WOULD LIKE TO TRANSITION PATIENT WHEN MEDICALLY READY FOR DISCHARGE TO AN INPT ALCOHOL REHAB PROGRAM. PT HAS BEEN TO [facility] IN THE PAST FOR TREATMENT, WELL ANOTHER FACILITY. CALL TO [facility] - THEY DO NOT OFFER. CALL TO [facility] - THEY ARE CLOSED SINCE January/ - CALL TO NUMEROUS FACILITIES FROM [place] AND NO BEDS AVAILABLE OR THEY DO NOT ACCEPT PT INSURANCE. CALL TO [place] @ [facility] THEY TOO HAVE A 3 MONTH WAIT LIST FOR THEIR PROGRAM, BUT COULD ACCEPT THE PATIENT TO A MEDICAL FLOOR AND TREAT HIM MEDICALLY, HAVE A PSYCHIATRIST/THERAPIST EVALUATE HIM FOR THE PROGRAM, AND OFFER SERVICES TO [place] THE GAP UNTIL HE COULD GO TO INPT REHAB. DISCUSSED WITH PT, HIS BROTHER AT BEDSIDE. PT/BROTHER BOTH IN AGREEMENT THAT THIS WOULD BE BEST SCENARIO AT THIS TIME. INTERESTED IN GOING TO [facility] IF THEY CAN ACCEPT PT. FAXED REFERRAL TO [place] FOR PROVIDER TO REVIEW. IF PT CAN BE ACCEPTED [employer] TO CALL M.D. AND NOTIFY. PROVIDED [place] WITH [employer] PHONE NUMBER [employer] CASE MANAGEMENT. Initialized on 05/03/20 15:55 - END OF NOTE 05/03/20 13:30 Case Management Note by Crissy La WHILE TALKING WITH PATIENT- [facility] REVIEWED ER RECORD- NO NOTE MADE THAT ER HAD M[facility] CONTACT WITH [facility]. NOTIFIED [place]- [facility] BED CONTROL TODAY THAT PATIENT IS HERE. THEY REQUESTED RECORDS BE FAXED TO THEM AT [phone]. RECORDS FAXED AT THIS TIME. Initialized on 05/03/20 13:30 - END OF NOTE Assessment/Plan (1) Alcohol abuse Current Visit: Yes Status: Acute Code(s): F10.10 - ALCOHOL ABUSE, UN COMPLICATED (2) Fall Current Visit: Yes Status: Acute Code(s): W19.XXXA - UNSPECIFIED FALL, INITIAL ENCOUNTER (3) Anxiety and depression Current Visit: Yes Status: Acute Code(s): F41.9 - ANXIETY DISORDER, UNS PECIFIED; F32.9 - MAJOR DEPRESSIVE DISORDER, SINGLE EPISODE, UNSPECIFIED (4) Malnourished Current Visit: Yes Status: Acute Code(s): E46 - UNSPECIFIED PROTEIN-CALORIE MALNUTRITION
[2020-05-04] MEDS: K-LYTE 25 MEQ PO SCH (09:47)
[2020-05-04 13:15] LABS: MAGNESIUM 1.3 mg/dL (1.6-2.3); Potassium 4.1 mmol/L (3.5-5.1)
[2020-05-04] MEDS: Magnesium 1 Gm / 100 Ml D5W*** 100 ML IV SCH ×2 (13:55→14:30)
--- NOTE | 2020-05-04 15:15 | XRAY ---
Indication: Possible liver mass on recent CT. Two-dimensional right upper quadrant abdominal sonogram performed. Comparison: None Visualized portions of the liver appears fatty in echogenicity. Right lobe demonstrates 9 mm cyst anteriorly. No other focal solid/cystic hepatic mass, hepatomegaly, or ascites. Gallbladder normally distended with 3 mm polyp. No gallstones, wall thickening, or pericholecystic fluid. Common bile duct measures 4.9 mm. No intrahepatic biliary distention. Remaining visualized pancreas and right kidney are sonographically unremarkable. Right kidney measures 9.5 cm in length. Impression: 1. Fatty liver with subcentimeter hepatic cyst. 2. Tiny gallbladder polyp. 3. Remaining right upper quadrant sonogram is negative.
[2020-05-05] MEDS: Sodium Chloride 0.9% 1000 ML 1,000 ML IV SCH ×2 (00:08→06:53)
[2020-05-05] MEDS ORDERED: Apresoline 25 MG TABLET PO PRN ×2 (01:57→07:15)
--- NOTE | 2020-05-05 07:23 | PCM.NOTE ---
Date and Time: 05/05/20719 Subjective Assessment: 69 yr old male seen this am. Patient reports he is doing well this am. He reports he had elevated bp overnight. He denies feeling bad at the time but reports mild SIMMS that he noticed after the elevated bp. Patient would like to go home on with home health if possible. He feels he would be ready to go home t omorrow. Objective Exam Wound Assessment: Skin/Wound Assessment Wound/Incision Assessment Start: 05/02/20 18:19 Text: Status: Active Freq: Q6H Protocol: Document 05/05/20 05:00 MS (Rec: 05/05/20 06:00 MS [id number]) Wound/Incision Assessment Left Arm Wound Assessment Shift Assessment Wound Type Skin Tear Dressing Status Dry & Intact Comment tegaderm clean, dry, and intact Wound Photo Photo Taken No OBJECTIVE DATA Vital Signs: Vital Signs - 24 hr Temp Pulse Resp BP Pulse Ox 05/05/20 04:28 98.1 F 83 18 161/96 97 05/05/20 01:30 98.2 F 79 18 174/108 97 05/04/20 20:18 97.8 F 84 16 156/87 98 05/04/20 16:18 97.7 F 84 15 121/81 99 05/04/20 16:00 16 05/04/20 13:10 97.9 F 05/04/20 12:00 97.9 F 100 H 15 113/77 98 05/04/20 08:00 16 05/04/20 07:49 98.1 F 78 13 134/87 99 Pain Assessment - Last Documented Pain Intensity 0 Intake and Output: Intake & Output 05/02/20 05/03/20 05/04/20 05/05/20 11:59 11:59 11:59 11:59 Intake Total 1121 4397 4413 Output Total 320 1105 1680 Balance 801 2078 2733 Weight 62 kg 64.8 kg 64.8 kg Lab Results: Lab Results-Last 24 Hours 05/04/20 05/04/20 Range/Units 04:40 12:45 WBC 2.6 L (4.0-10.5) K/mm3 RBC 3.33 L (4.1-5.6) M/mm3 Hgb 11.0 L (12.5-18.0) gm/dl Hct 32.2 L (42-50) % MCV 96.7 (78-100) fl MCH 33.0 H (26-32) pg MCHC 34.2 (32-36) g/dl RDW 12.8 (11.5-14.0) % Plt Count 100 L (150-450) K/mm3 MPV 10.6 (7.5-11.0) fl Gran % 69.9 H (36.0-66.0) % Eos # (Auto) 0.05 (0-0.5) Absolute Lymphs (auto) 0.53 L (1.0-4.6) Absolute Monos (auto) 0.19 (0.0-1.3) Lymphocytes % 20.2 L (24.0-44.0) % Monocytes % 7.2 (0.0-12.0) % Eosinophils % 1.9 (0.00-5.0) % Basophils % 0.8 (0.0-0.4) % Absolute Granulocytes 1.84 (1.4-6.9) Basophils # 0.02 (0-0.4) Peripher Smr Path Cons Potassium 4.1 D (3.5-5.1) mmol/L Magnesium 1.3 L (1.6-2.3) mg/dL Slides for Path Review Radiology Exams: Radiology Procedures Category Date Time Status ECHO W/2D AND DOPPLER [US] Routine Exams 05/04/20 10:28 Taken LIVER OR SPLEEN [US] Routine Exams 05/04/20 15:01 Completed Multi-Disciplinary Progress Notes: Multi-Disciplinary Progress Notes 05/04/20 11:58 Case Management Note by Crissy La S/W PATIENT THIS AM- HE WOULD LIKE TO GO TO REHAB AT [facility] TO GET STRONGER PRIOR TO RETURNING HOME. DR. ORELLANA IN AGREEMENT TO THIS. REFERRAL AND PASRR PAPERWORK SENT TO [facility] AT THIS TIME Initialized on 05/04/20 11:58 - END OF NOTE 05/04/20 11:38 Case Management Note by Crissy La CALLED [place] IN [facility] TO FIND OUT PATIENT'S WHOLESALE DIAMOND BROKER AND ABOUT HIS COVID VACCINATION STATUS (PATIENT [facility] THEY WILL CALL BACK Initialized on 05/04/20 11:38 - END OF NOTE 05/04/20 11:08 Case Management Note by La,Crissy PASRR PAPERWORK COMPLETED- NO LEVEL II REQUIRED, COPY PLACED ON CHART Initialized on 05/04/20 11:08 - END OF NOTE Assessment/Plan (1) Alcohol abuse Current Visit: Yes Status: Acute Assessment & Plan: Patient has long hx of alcohol abuse. He has attempted to do inpatient treatment in the past. He reports that he attempted to stop drinking on his own at home and stopped abruptly. We discussed how unsafe this is for patient. He would like to go home on disulfiram if possible. Will start on this medication. Patient was informed that consuming alcohol on this medication will make him ill. Code(s): F10.10 - ALCOHOL ABUSE, UNCOMPLICATED (2) Anxiety and depression Current Visit: Yes Status: Acute Code(s): F41.9 - ANXIETY DISORDER, UNSPECIFIED; F32.9 - MAJOR DEPRESSIVE DISORDER, SINGLE EPISODE, UNSPECIFIED (3) Dehydration Current Visit: Yes Status: Acute Code(s): E86.0 - DEHYDRATION (4) Fall Current Visit: Yes Status: Acute Code(s): W19.XXXA - UNSPECIFIED FALL, INITIAL ENCOUNTER (5) Hypokalemia Current Visit: Yes Status: Acute Code(s): E87.6 - HYPOKALEMIA (6) Hyponatremia Current Visit: Yes Status: Acute Code(s): E87.1 - HYPO-OSMOLALITY AND HYPONATREMIA (7) Malnourished Current Visit: Yes Status: Acute Code(s): E46 - UNSPECIFIED PROTEIN-CALORIE MALNUTRITION
[2020-05-05 07:58] LABS: Absolute Neutrophil Ct (ANC) 2.33 (1.4-6.9); BASOPHIL % 0.3 % (0.0-0.4); Basophil (Absolute #) 0.01 (0-0.4); Eosinophil % 1.6 % (0.00-5.0); Eosinophil (Absolute #) 0.05 (0-0.5); Hematocrit 34.5 % (42-50); Hemoglobin 11.7 gm/dl (12.5-18.0); Lymphocyte (Absolute #) 0.59 (1.0-4.6); Lymphocytes % 18.5 % (24.0-44.0); Mean Cell Volume 97.7 fl (78-100); Mean Corpuscular Hemoglobin 33.1 pg (26-32); Mean Corpuscular Hgb Concent. 33.9 g/dl (32-36); Monocyte (Absolute #) 0.21 (0.0-1.3); Monocytes % 6.6 % (0.0-12.0); Platelet Count 109 K/mm3 (150-450); Red Blood Count 3.53 M/mm3 (4.1-5.6); Red Cell Distribution Width 12.8 % (11.5-14.0); White Blood Count 3.2 K/mm3 (4.0-10.5)
[2020-05-05 09:34] LABS: Slide Review 1 YES
[2020-05-05 09:37] LABS: ALBUMIN 2.6 g/dL (3.5-5.0); ALKALINE PHOSPHATASE 69 U/L (38-126); ANION GAP 7.4 MEQ/L (5-15); BLOOD UREA NITROGEN 3 mg/dL (9-20); CHLORIDE 97 mmol/L (98-107); Calcium 7.7 mg/dL (8.4-10.2); Carbon Dioxide 28 mmol/L (22-30); EST GLOMERULAR FILTRATION RATE > 60.0 ML/MIN; Glucose 100 mg/dL (74-106); Potassium 3.2 mmol/L (3.5-5.1); SGOT/AST 64 U/L (17-59); SGPT/ALT 31 U/L (0-50); SODIUM 129 mmol/L (137-145); Total Protein 5.1 g/dL (6.3-8.2)
[2020-05-05] MEDS: K-LYTE 25 MEQ PO SCH (10:19)
[2020-05-05] MEDS: ceLEXa 20 MG PO SCH (10:49)
[2020-05-05] MEDS: Cozaar 50 MG PO SCH (10:50)
[2020-05-05] MEDS ORDERED: TYLENOL EXTRA STRENGTH 500 MG PO PRN (18:44)
[2020-05-06] MEDS: ceLEXa 20 MG PO SCH (09:59)
[2020-05-06] MEDS: K-LYTE 25 MEQ PO SCH (09:59)
[2020-05-06] MEDS: Cozaar 50 MG PO SCH (09:59)
[2020-05-06 11:52] VITALS: BP 144/97; PULSE 86; O2SAT 99
--- NOTE | 2020-05-06 12:33 | PCM.DS ---
Discharge Summary Date of Admission: 05/02/20 17:04 Admitting Physician: SE CÁRDENAS Primary Care Provider: NO FAMILY DOCTOR Allergies Allergies No Known Drug Allergies Allergy (Unverified 05/02/20 12:52) Hospital Summary - Vitals & Intake/Output Vital Signs: Vital Signs Temperature 98.4 F 05/06/20 11:52 Pulse Rate 86 05/06/20 11:52 Respiratory Rate 20 05/06/20 11:52 Blood Pressure 144/97 05/06/20 11:52 O2 Sat by Pulse Oximetry 99 05/06/20 11:52 Intake & Output: Intake & Output 05/04/20 05/05/20 05/06/20 05/07/20 11:59 11:59 11:59 11:59 Intake Total 4397 4653 1000 Output Total 2325 1680 0 Balance 2 2973 -1050 Weight 64.8 kg 66.1 kg 63.9 kg - Lab Result Diagrams: 05/05/20 07:50 05/05/20 13:45 Lab Results-Last 24 Hrs: Lab Results-Last 24 Hours 05/05/20 Range/Units 13:45 Potassium 3.5 (3.5-5.1) mmol/L Micro Results-Entire Visit: Microbiology 05/02/20 13:21 Blood Culture - Preliminary Blood NO GROWTH TO DATE 05/02/20 13:21 Blood Culture - Preliminary Blood NO GROWTH TO DATE - Radiology Exams Ordered Rad Exams-Entire Visit: Radiology Procedures Category Date Time Status LIVER OR SPLEEN [US] Routine Exams 05/04/20 15:01 Completed - Procedures and Test Procedures and Tests throughout Hospitalization: Therapy Orders & Screens 05/02/20 18:19 OT Screen per Nursing Assess ONCE Comment: Protocol Order Physician Instructions: Greater than 3 points order OT Admission Screening Reason For Exam: Triggered on Admission Diagnosis: hypokalemia, hyponatremia, dehydration. Open Wound/Cellutlitis/Pressure Ulcers: Yes Acute Fx/ORIF/Change in wt bearing status: Yes Severe MUSCULOSKELETAL pain: No ADL Dysfunction: Yes Acute CVA w/Hemiparesis/Hemiplegia: No Decreased Functional Mobility/Strength: Yes Sprain/Strain: No Acute Post-op Mobility Dysfunction: No Total Points: 14 PT Screen per Nursing Assess ONCE Comment: Protocol Order Physician Instructions: Greater than 3 points order PT Admission Screenin Reason For Exam: Triggered on Admission Diagnosis: hypokalemia, hyponatremia, dehydration. Open Wound/Cellutlitis/Pressure Ulcers: Yes Acute Fx/ORIF/Change in wt bearing status: Yes Severe MUSCULOSKELETAL pain: No ADL Dysfunction: Yes Acute CVA w/Hemiparesis/Hemiplegia: No Decreased Functional Mobility/Strength: Yes Sprain/Strain: No Acute Post-op Mobility Dysfunction: No Total Points: 14 Smoking Cessation Education ONCE Comment: Diagnosis: hypokalemia, hyponatremia, dehydration. Smoking Status: Current every day smoker How long have you smoked: years Have you smoked in the past 12 months: Yes Approximately how many cigarettes per day: 1/2 pack Do you dip or chew tobacco: No 05/04/20 11:00 PT Eval & Treat (MD Order) ONCE Reason for Eval:: DECONDITIONING R/T MALNOURISHED, ALCOHOL ABUSE Diagnosis: hypokalemia, hyponatremia, dehydration. Discharge Exam Wound Assessment: Skin/Wound Assessment Wound/Incision Assessment Start: 05/02/20 18:19 Text: Status: Active Freq: Q6H Protocol: Document 05/06/20 11:00 AR (Rec: 05/06/20 11:37 AR [id number]) Wound/Incision Assessment Left Arm Wound Assessment Shift Assessment Wound Type Skin Tear Dressing Status Dry & Intact Drainage Amount Minimal Comment tegaderm clean, dry, and intact Wound Photo Photo Taken No Final Diagnosis/Problem List - Final Discharge Diagnosis/Problem (1) Alcohol abuse Current Visit: Yes Status: Acute Code(s): F10.10 - ALCOHOL ABUSE, UNCOMPLICATED (2) Anxiety and depression Current Visit: Yes Status: Acute Code(s): F41.9 - ANXIETY DISORDER, UNSPECIFIED; F32.9 - MAJOR DEPRESSIVE DISORDER, SINGLE EPISODE, UNSPECIFIED (3) Dehydration Current Visit: Yes Status: Acute Code(s): E86.0 - DEHYDRATION (4) Fall Current Visit: Yes Status: Acute Code(s): W19.XXXA - UNSPECIFIED FALL, INITIAL ENCOUNTER (5) Hypokalemia Current Visit: Yes Status: Acute Code(s): E87.6 - HYPOKALEMIA (6) Hyponatremia Current Visit: Yes Status: Acute Code(s): E87.1 - HYPO-OSMOLALITY AND HYPONATREMIA (7) Malnourished Current Visit: Yes Status: Acute Code(s): E46 - UNSPECIFIED PROTEIN-CALORIE MALNUTRITION - Discharge Disposition: Home, Self-Care Condition: Fair Prescriptions: No Action No Reportable Medications [No Reported Medications] Follow up with: DOCTOR,NO FAMILY [Primary Care Provider] -
== END 2020-05-06 14:40 | disposition swing bed (61) | DRG 897 ==
LOC: ED 12:48 → MED SURG 17:04
PROVIDERS: ADMIT General Practice; ATTEND Family Medicine
DX: F10.10 Alcohol abuse, uncomplicated (principal); E87.1 Hypo-osmolality and hyponatremia; E46 Unspecified protein-calorie malnutrition; R53.1 Weakness; R42 Dizziness and giddiness; E87.6 Hypokalemia; E86.0 Dehydration; F41.9 Anxiety disorder, unspecified; F32.9 Major depressive disorder, single episode, unspecified; W19.XXXA Unspecified fall, initial encounter; I10 Essential (primary) hypertension; S51.012A Laceration without foreign body of left elbow, initial encounter
CPT/HCPCS: 0241U; 36415; 70450; 71045; 74176; 76705; 80053; 80076; 80307; 81001; 82140; 82150; 82550; 82607; 82746; 83605; 83690; 83735; 83880; 84132; 84425; 84484; 85025; 85060; 85379; 85610; 85652; 85730; 87040; 93005; 93306; 96360; 97161; 97530; 99285; J3475; J3480; A9270-GY

== ENCOUNTER 2020-05-06 10:05 | Inpatient (IN) | payer MEDICARE ==
[2020-05-06] MEDS ORDERED: Aplisol ID ONE (14:42)
[2020-05-06] MEDS ORDERED: Apresoline 25 MG TABLET PO PRN (14:42)
[2020-05-07] MEDS ORDERED: Aplisol ID SCH (10:00)
[2020-05-07] MEDS: ceLEXa 20 MG PO SCH (10:05)
[2020-05-07] MEDS: K-LYTE 25 MEQ PO SCH (10:05)
[2020-05-07] MEDS: Cozaar 50 MG PO SCH (10:07)
[2020-05-07] MEDS: TYLENOL EXTRA STRENGTH 500 MG PO PRN (12:39)
[2020-05-08] MEDS: TYLENOL EXTRA STRENGTH 500 MG PO PRN ×3 (04:37→18:57)
[2020-05-08] MEDS: K-LYTE 25 MEQ PO SCH (09:14)
[2020-05-08] MEDS: ceLEXa 20 MG PO SCH (09:14)
[2020-05-08] MEDS: Cozaar 50 MG PO SCH (09:15)
[2020-05-09] MEDS: ceLEXa 20 MG PO SCH (09:13)
[2020-05-09] MEDS: Cozaar 50 MG PO SCH (09:13)
[2020-05-09] MEDS: K-LYTE 25 MEQ PO SCH (09:14)
[2020-05-09] MEDS: TYLENOL EXTRA STRENGTH 500 MG PO PRN (12:05)
[2020-05-10] MEDS: K-LYTE 25 MEQ PO SCH (09:31)
[2020-05-10] MEDS: ceLEXa 20 MG PO SCH (09:32)
[2020-05-10] MEDS: Cozaar 50 MG PO SCH (09:32)
[2020-05-10] MEDS: TYLENOL EXTRA STRENGTH 500 MG PO PRN ×2 (09:32→16:06)
--- NOTE | 2020-05-10 20:23 | PCM.HP ---
History of Present Illness - Chief Complaint Chief Complaint: DECONDITIONING R/T ELECTROLYTE IMBALANCE, MALNUTRITION History of Present Illness: is a 69 year old male pt of Dr. Rodriguez, alcoholic, who was admitted from acute care to swing bed for gen muscle weakness and rehab. He states he's feeling stronger every day. His appetite has returned and he's eating well. - Review of Systems Abdominal/Gastrointestinal: Appetite Changes Neurological: Dizziness Psychological: Alcohol Abuse, Depression, No Suicidal Ideations All Other Systems: Reviewed and Negative Medications & Allergies Home Medications: Home Medication List No Reportable Medications [No Reported Medications] 05/02/20 [History Confirmed 05/06/20] Allergies/Adverse Reactions: Allergies Allergy/AdvReac Type Severity Reaction Status Date / Time No Known Drug Allergies Allergy Verified 05/06/20 14:45 - Past Medical History Neurological History: No Pertinent History ENT History: No Pertinent History Cardiac History: Hypertension Respiratory History: No Pertinent History Endocrine Medical History: No Pertinent History Musculoskelatal History: No Pertinent History GI Medical History: Hernia History: No Pertinent History Pyscho-Social History: Anxiety, Depression, Other Male Reproductive Disorders: No Pertinent History Comment: ETOH abuse - Past Surgical History Past Surgical History: Yes Neuro Surgical History: No Pertinent History Cardiac History: No Pertinent History Respiratory Surgery: No Pertinent History GI Surgical History: Hernia Repair Genitourinary Surgical Hx: No Pertinent History Musculskeletal Surgical Hx: No Pertinent History Male Surgical History: No Pertinent History Other Surgical History: Left eye surgery-ocular lens implant - Social History Smoking Status: Current every day smoker How long have you smoked: years Exposure to second hand smoke: No Alcohol: Heavy, Daily Drug Use: none - Physical Exam Vital Signs: Vital Signs - 24 hr Temp Pulse Resp BP Pulse Ox 05/10/20 18:54 98.2 F 96 H 18 134/90 99 05/10/20 07:00 98.3 F 104 H 16 159/88 99 General Appearance: no apparent distress, thin Neurologic Exam: alert, cooperative Eye Exam: eyes nml inspection Ears, Nose, Throat Exam: moist mucous membranes Neck Exam: normal inspection, non-tender, No lymphadenopathy Respiratory Exam: normal breath sounds, lungs clear, No crackles/rales, No rhonchi, No wheezing Cardiovascular Exam: regular rate/rhythm, normal heart sounds, No murmur Gastrointestinal/Abdomen Exam: soft, normal bowel sounds, No tenderness, No distention, No mass, No guarding, No rebound Extremity Exam: normal inspection, No pedal edema, No swelling Skin Exam: warm, dry Wound Assessment: Skin/Wound Assessment Wound/Incision Assessment Start: 05/06/20 15:26 Text: Status: Active Freq: Q6H Protocol: Document 05/10/20 14:00 BH (Rec: 05/10/20 15:19 [id number]) Wound/Incision Assessment Left Elbow Wound Assessment Shift Assessment Wound Type Skin Tear Comment covered with tegaderm. Assessment/Plan (1) Generalized muscle weakness Current Visit: Yes Status: Chronic Assessment & Plan: Starting to improve. Pt lives alone. PT. Code(s): M62.81 - MUSCLE WEAKNESS (GENERALIZED) (2) Alcohol abuse Current Visit: No Status: Chronic Assessment & Plan: Some tremors, otherwise pt denies sx. Code(s): F10.10 - ALCOHOL ABUSE, UNCOMPLICATED (3) Anxiety and depression Current Visit: No Status: Chronic Assessment & Plan: no SI. Code(s): F41.9 - ANXIETY DISORDER, UNSPECIFIED; F32.9 - MAJOR DEPRESSIVE DISORDER, SINGLE EPISODE, UNSPECIFIED (4) Hypokalemia Current Visit: No Status: Resolved Code(s): E87.6 - HYPOKALEMIA (5) Malnourished Current Visit: No Status: Chronic Qualifiers: Malnutrition type: protein-calorie malnutrition Code(s): E46 - UNSPECIFIED PROTEIN-CALORIE MALNUTRITION
[2020-05-10] MEDS: ULTRAM 50 MG PO PRN (21:47)
[2020-05-11] MEDS: ULTRAM 50 MG PO PRN ×2 (07:42→16:28)
[2020-05-11] MEDS: K-LYTE 25 MEQ PO SCH (09:30)
[2020-05-11] MEDS: ceLEXa 20 MG PO SCH (09:32)
[2020-05-11] MEDS: Cozaar 50 MG PO SCH (09:32)
--- NOTE | 2020-05-11 21:16 | PCM.NOTE ---
Date and Time: 05/11/202115 Objective Exam Wound Assessment: Skin/Wound Assessment Wound/Incision Assessment Start: 05/06/20 15:26 Text: Status: Active Freq: Q6H Protocol: Document 05/11/20 20:00 ST (Rec: 05/11/20 20:41 ST [id number]) Wound/Incision Assessment Left Elbow Wound Assessment Shift Assessment Wound Type Skin Tear Wound Stage Non Pressure Wound Dressing Status Dry & Intact Drainage Amount None General Appearance Reddened Primary Dressing TEGADERM Wound Photo Photo Taken No OBJECTIVE DATA Vital Signs: Vital Signs - 24 hr Temp Pulse Resp BP BP Pulse Ox 05/11/20 19:00 97.0 F 98 H 18 91/64 97 05/11/20 07:00 98.3 F 89 18 130/89 99 Pain Assessment - Last Documented Pain Intensity 5 Pain Scale Used 0-10 Pain Scale Intake and Output: Intake & Output 05/09/20 05/10/20 05/11/20 05/12/20 11:59 11:59 11:59 11:59 Intake Total 940 600 720 Output Total 950 350 700 Balance -10 250 20 Weight 65.3 kg
[2020-05-12] MEDS: ceLEXa 20 MG PO SCH (09:55)
[2020-05-12] MEDS: K-LYTE 25 MEQ PO SCH (09:55)
[2020-05-12] MEDS: Cozaar 50 MG PO SCH (09:55)
[2020-05-12] MEDS: ULTRAM 50 MG PO PRN ×2 (10:54→20:24)
[2020-05-13] MEDS: ceLEXa 20 MG PO SCH (10:26)
[2020-05-13] MEDS: Cozaar 50 MG PO SCH (10:26)
[2020-05-13] MEDS: K-LYTE 25 MEQ PO SCH (10:27)
[2020-05-13] MEDS: ULTRAM 50 MG PO PRN (10:34)
[2020-05-14] MEDS: ceLEXa 20 MG PO SCH (09:01)
[2020-05-14] MEDS: Cozaar 50 MG PO SCH (09:01)
[2020-05-14] MEDS: K-LYTE 25 MEQ PO SCH (09:01)
[2020-05-14] MEDS ORDERED: Artificial Tears 15 ML OP PRN (09:23)
[2020-05-14] MEDS: ULTRAM 50 MG PO PRN (20:14)
[2020-05-15] MEDS: K-LYTE 25 MEQ PO SCH (09:28)
[2020-05-15] MEDS: ceLEXa 20 MG PO SCH (09:29)
[2020-05-15] MEDS: Cozaar 50 MG PO SCH (09:30)
[2020-05-15] MEDS: TYLENOL EXTRA STRENGTH 500 MG PO PRN (15:39)
[2020-05-16] MEDS: ceLEXa 20 MG PO SCH (09:06)
[2020-05-16] MEDS: K-LYTE 25 MEQ PO SCH (09:07)
[2020-05-16] MEDS: Cozaar 50 MG PO SCH (09:07)
[2020-05-16] MEDS: ULTRAM 50 MG PO PRN (19:28)
[2020-05-17] MEDS: ceLEXa 20 MG PO SCH (10:05)
[2020-05-17] MEDS: Cozaar 50 MG PO SCH (10:06)
[2020-05-17] MEDS: K-LYTE 25 MEQ PO SCH (10:06)
--- NOTE | 2020-05-17 10:46 | PCM.NOTE ---
Date and Time: 05/17/20 1046 Objective Exam Wound Assessment: Skin/Wound Assessment Wound/Incision Assessment Start: 05/06/20 15:26 Text: Status: Active Freq: Q6H Protocol: Document 05/17/20 09:00 BA (Rec: 05/17/20 10:17 BA [id number]) Wound/Incision Assessment Left Elbow Wound Assessment Shift Assessment Wound Type Skin Tear Wound Stage Non Pressure Wound Dressing Status Dry & Intact Drainage Amount None Primary Dressing TEGADERM Comment skin tear left arm at elbow Wound Photo Photo Taken No OBJECTIVE DATA Vital Signs: Vital Signs - 24 hr Temp Pulse Resp BP Pulse Ox 05/17/20 08:00 97.7 F 103 H 18 113/77 99 05/16/20 20:00 98.6 F 100 H 16 132/83 98 05/16/20 16:00 97.5 F 101 H 16 112/58 99 Pain Assessment - Last Documented Pain Intensity 0 Pain Scale Used 0-10 Pain Scale Intake and Output: Intake & Output 05/14/20 05/15/20 05/16/20 05/17/20 10:59 10:59 11:59 11:59 Intake Total 680 Output Total 1350 Balance -670 Weight 59.1 kg
[2020-05-18] MEDS: K-LYTE 25 MEQ PO SCH (09:28)
[2020-05-18] MEDS: ceLEXa 20 MG PO SCH (09:28)
[2020-05-18] MEDS: Cozaar 50 MG PO SCH (09:29)
[2020-05-18] MEDS ORDERED: Aplisol ID SCH (10:00)
[2020-05-18 14:38] VITALS: BP 110/82; PULSE 104; O2SAT 97
== END 2020-05-18 16:10 | DRG 556 ==
LOC: MED SURG 14:40
PROVIDERS: ADMIT Family Medicine; ATTEND Family Medicine
DX: M62.81 Muscle weakness (generalized) (principal); E46 Unspecified protein-calorie malnutrition; E87.6 Hypokalemia; R42 Dizziness and giddiness; F10.10 Alcohol abuse, uncomplicated; I10 Essential (primary) hypertension; F41.9 Anxiety disorder, unspecified; F32.9 Major depressive disorder, single episode, unspecified
CPT/HCPCS: 82947; 93005; A9270-GY

== ENCOUNTER 2020-06-04 15:38 | Observation (INO) | payer MEDICARE ==
[2020-06-04] MEDS ORDERED: Sodium Chloride 0.9% 1000 ML 1,000 ML IV STA (16:02)
[2020-06-04] MEDS ORDERED: Sodium Chloride 0.9% 1000 ML 1,000 ML ONE (16:10)
[2020-06-04 16:32] LABS: Absolute Neutrophil Ct (ANC) 3.96 (1.4-6.9); BASOPHIL % 0.5 % (0.0-0.4); Basophil (Absolute #) 0.03 (0-0.4); Eosinophil % 1.7 % (0.00-5.0); Hemoglobin 12.7 gm/dl (12.5-18.0); Lymphocyte (Absolute #) 1.14 (1.0-4.6); Lymphocytes % 19.8 % (24.0-44.0); Mean Cell Volume 97.7 fl (78-100); Mean Corpuscular Hemoglobin 31.8 pg (26-32); Mean Corpuscular Hgb Concent. 32.6 g/dl (32-36); Mean Platelet Volume 9.1 fl (7.5-11.0); Monocyte (Absolute #) 0.52 (0.0-1.3); Platelet Count 191 K/mm3 (150-450); Red Blood Count 3.99 M/mm3 (4.1-5.6); Red Cell Distribution Width 12.6 % (11.5-14.0); White Blood Count 5.8 K/mm3 (4.0-10.5)
[2020-06-04 16:41] LABS: ALBUMIN 3.8 g/dL (3.5-5.0); ALKALINE PHOSPHATASE 58 U/L (38-126); ANION GAP 14.8 MEQ/L (5-15); BLOOD UREA NITROGEN 15 mg/dL (9-20); CHLORIDE 104 mmol/L (98-107); Calcium 9.8 mg/dL (8.4-10.2); Carbon Dioxide 27 mmol/L (22-30); Creatinine 1 1.27 mg/dL (0.66-1.25); EST GLOMERULAR FILTRATION RATE > 60.0 ML/MIN; Glucose 101 mg/dL (74-106); MAGNESIUM 1.8 mg/dL (1.6-2.3); Potassium 5.5 mmol/L (3.5-5.1); SGOT/AST 32 U/L (17-59); SGPT/ALT 18 U/L (0-50); SODIUM 140 mmol/L (137-145); Total Protein 6.8 g/dL (6.3-8.2)
--- NOTE | 2020-06-04 16:43 | XRAY ---
Indication: Weakness and balance problems. Hypotension. Comparison: May 02, 2020. Portable chest remains hyperinflated and clear. Heart not enlarged. Bony thorax intact again with mild degenerative changes. No new/acute findings.
--- NOTE | 2020-06-04 17:04 | ERPHSYRPT ---
- History of Present Illness Time Seen by Provider: 06/04/20 15:49 Source: patient Exam Limitations: no limitations Patient Subjective Stated Complaint: hypotension Triage Nursing Assessment: pt to ED c/o hypotension and dizziness today. was DC from ECF yesterday. pt was there for malnutrition. home health RN was at his home today and discovered his hypotension and dizziness, called EMS for transport to ED. pt denies pain at this time. Physician History: 69 years old male with history of alcohol abuse, malnutrition who was recently admitted and later on was getting rehab at [facility], was discharged home presented with hypotension. Patient report he started to feel lightheaded with standing up and went down on the ground. Did not hit his head or loss of consciousness. Complaining of weakness all over with no energy to do his routine activities. On EMS arrival his blood pressure systolic was 100. Denies any chest pain palpitations or shortness of breath. No abdominal pain nausea or vomiting. Patient denies any dizziness or lightheadedness with lying down but it gets worse with activity. Denies any focal numbness tingling or weakness. Note visual symptoms or difficulty speech. Timing/Duration: today, sudden, improved Severity: moderate Modifying Factors: Improves With: rest. Worsens With: movement Associated Symptoms: denies symptoms Allergies/Adverse Reactions: No Known Drug Allergies Allergy (Verified 05/06/20 14:45) Hx Tetanus, Diphtheria Vaccination/Date Given: No Hx Influenza Vaccination/Date Given: Yes Hx Pneumococcal Vaccination/Date Given: Yes Immunizations Up to Date: Yes Travel Risk - International Travel Have you traveled outside of the country in past 3 weeks: No - Coronavirus Screening Are you exhibiting any of the following symptoms?: No Close contact with a COVID-19 positive Pt in past 14-21 Days: No - Vaccine Status Have you recieved a Covid-19 vaccination: Yes 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: [employer] - Vaccination Dates Date of 2cond Vaccination (if applicable): has not yet recieved - Review of Systems Constitutional: Fatigue, Weakness Eyes: No Symptoms Ears, Nose, & Throat: No Symptoms Respiratory: No Symptoms Cardiac: No Symptoms Abdominal/Gastrointestinal: No Symptoms Genitourinary Symptoms: No Symptoms Musculoskeletal: No Symptoms Skin: No Symptoms Neurological: Dizziness Psychological: No Symptoms Endocrine: No Symptoms Hematologic/Lymphatic: No Symptoms Immunological/Allergic: No Symptoms - Past Medical History Pertinent Past Medical History: Yes Neurological History: No Pertinent History ENT History: No Pertinent History Cardiac History: Hypertension Respiratory History: No Pertinent History Endocrine Medical History: No Pertinent History Musculoskeletal History: No Pertinent History GI Medical History: Hernia History: No Pertinent History Psycho-Social History: Anxiety, Depression, Other Male Reproductive Disorders: No Pertinent History Other Medical History: ETOH abuse. ECF stay for malnutrition 05/2020 - Past Surgical History Past Surgical History: Yes Neuro Surgical History: No Pertinent History Cardiac: No Pertinent History Respiratory: No Pertinent History Gastrointestinal: Hernia Repair Genitourinary: No Pertinent History Musculoskeletal: No Pertinent History Male Surgical History: No Pertinent History Other Surgical History: Left eye surgery-ocular lens implant - Social History Smoking Status: Current every day smoker How long have you smoked: years Exposure to second hand smoke: No Drug Use: none Patient Lives Alone: No - Nursing Vital Signs Nursing Vital Signs: Initial Vital Signs Temperature 98.4 F 06/04/20 15:39 Pulse Rate 89 06/04/20 15:39 Respiratory Rate 17 06/04/20 15:39 Blood Pressure 130/84 06/04/20 15:39 O2 Sat by Pulse Oximetry 100 06/04/20 15:39 Pain Scale Pain Intensity 3 - Physical Exam General Appearance: no apparent distress, alert Eye Exam: PERRL/EOMI, eyes nml inspection Ears, Nose, Throat Exam: normal ENT inspection, TMs normal, pharynx normal Neck Exam: normal inspection, non-tender, supple, full range of motion Respiratory Exam: normal breath sounds, lungs clear, No chest tenderness Cardiovascular Exam: regular rate/rhythm, normal heart sounds Gastrointestinal/Abdomen Exam: soft, normal bowel sounds, No tenderness Back Exam: normal inspection, normal range of motion Extremity Exam: normal inspection, normal range of motion, pelvis stable Neurologic Exam: alert, oriented x 3, cooperative, manager contracting II-XII nml as tested, normal mood/affect, nml cerebellar function, sensation nml Skin Exam: normal color SpO2 Interpretation: normal SpO2: 100 O2 Delivery: Room Air - Course EKG Interpreted by Me: RATE (84), Sinus Rhythm, NORMAL AXIS, NORMAL INTERVALS, NORMAL QRS Ordered Tests: Active Orders 24 hr Category Date Time Status Assisted Living Coordinator STAT Care 06/04/20 16:02 Active EKG-ER Only STAT Care 06/04/20 16:02 Active IV Insertion STAT Care 06/04/20 16:02 Active CHEST 1 VIEW (PORTABLE) Stat Exams 06/04/20 16:02 Completed CBC W DIFF Stat Lab 06/04/20 16:15 Completed CMP Stat Lab 06/04/20 16:15 Completed Lactic Acid Stat Lab 06/04/20 16:02 Completed MAGNESIUM Stat Lab 06/04/20 16:15 Completed TROPONIN Q3H Lab 06/04/20 16:15 Completed TROPONIN Q3H Lab 06/04/20 19:15 Ordered TROPONIN Q3H Lab 06/04/20 22:15 Ordered TROPONIN Q3H Lab 06/05/20 01:15 Ordered TROPONIN Q3H Lab 06/05/20 04:15 Ordered UA W/RFX UR CULTURE Stat Lab 06/04/20 16:02 Ordered Transfer Order Routine Transfer 06/04/20 Ordered Medication Summary Discontinued Medications Generic Name Dose Route Start Last Admin Trade Name Freq PRN Reason Stop Dose Admin Sodium Chloride 1,000 mls @ 999 mls/hr 06/04/20 16:02 06/04/20 17:41 Sodium Chloride 0.9% 1000 Ml IV 06/04/20 17:02 Infused .Q1H1M STA Infusion Sodium Chloride Confirm 06/04/20 16:10 Sodium Chloride 0.9% 1000 Ml Administered 06/04/20 16:11 Dose 1,000 mls @ ud .ROUTE .STK-MED ONE Lab/Rad Data: Laboratory Result Diagrams 06/04/20 16:15 06/04/20 16:15 Laboratory Results 06/04/20 06/04/20 06/04/20 Range/Units 16:15 16:15 16:15 WBC 5.8 (4.0-10.5) K/mm3 RBC 3.99 L (4.1-5.6) M/mm3 Hgb 12.7 (12.5-18.0) gm/dl Hct 39.0 L (42-50) % MCV 97.7 (78-100) fl MCH 31.8 (26-32) pg MCHC 32.6 (32-36) g/dl RDW 12.6 (11.5-14.0) % Plt Count 191 (150-450) K/mm3 MPV 9.1 (7.5-11.0) fl Gran % 69.0 H (36.0-66.0) % Eos # (Auto) 0.10 (0-0.5) Absolute Lymphs (auto) 1.14 (1.0-4.6) Absolute Monos (auto) 0.52 (0.0-1.3) Lymphocytes % 19.8 L (24.0-44.0) % Monocytes % 9.0 (0.0-12.0) % Eosinophils % 1.7 (0.00-5.0) % Basophils % 0.5 (0.0-0.4) % Absolute Granulocytes 3.96 (1.4-6.9) Basophils # 0.03 (0-0.4) Sodium 140 (137-145) mmol/L Potassium 5.5 H (3.5-5.1) mmol/L Chloride 104 (98-107) mmol/L Carbon Dioxide 27 (22-30) mmol/L Anion Gap 14.8 (5-15) MEQ/L BUN 15 (9-20) mg/dL Creatinine 1.27 H (0.66-1.25) mg/dL Estimated GFR > 60.0 ML/MIN Glucose 101 (74-106) mg/dL Lactic Acid (0.4-2.0) Calcium 9.8 (8.4-10.2) mg/dL Magnesium 1.8 (1.6-2.3) mg/dL Total Bilirubin 1.20 (0.2-1.3) mg/dL AST 32 (17-59) U/L ALT 18 (0-50) U/L Alkaline Phosphatase 58 (38-126) U/L Troponin I < 0.012 (0.000-0.034) ng/mL Serum Total Protein 6.8 (6.3-8.2) g/dL Albumin 3.8 (3.5-5.0) g/dL 06/04/20 Range/Units 16:02 WBC (4.0-10.5) K/mm3 RBC (4.1-5.6) M/mm3 Hgb (12.5-18.0) gm/dl Hct (42-50) % MCV (78-100) fl MCH (26-32) pg MCHC (32-36) g/dl RDW (11.5-14.0) % Plt Count (150-450) K/mm3 MPV (7.5-11.0) fl Gran % (36.0-66.0) % Eos # (Auto) (0-0.5) Absolute Lymphs (auto) (1.0-4.6) Absolute Monos (auto) (0.0-1.3) Lymphocytes % (24.0-44.0) % Monocytes % (0.0-12.0) % Eosinophils % (0.00-5.0) % Basophils % (0.0-0.4) % Absolute Granulocytes (1.4-6.9) Basophils # (0-0.4) Sodium (137-145) mmol/L Potassium (3.5-5.1) mmol/L Chloride (98-107) mmol/L Carbon Dioxide (22-30) mmol/L Anion Gap (5-15) MEQ/L BUN (9-20) mg/dL Creatinine (0.66-1.25) mg/dL Estimated GFR ML/MIN Glucose (74-106) mg/dL Lactic Acid 1.0 (0.4-2.0) Calcium (8.4-10.2) mg/dL Magnesium (1.6-2.3) mg/dL Total Bilirubin (0.2-1.3) mg/dL AST (17-59) U/L ALT (0-50) U/L Alkaline Phosphatase (38-126) U/L Troponin I (0.000-0.034) ng/mL Serum Total Protein (6.3-8.2) g/dL Albumin (3.5-5.0) g/dL - Progress Progress: improved, re-examined Progress Note: 06/04/20 17:02 69 years old is evaluated for generalized weakness fatigue and getting lightheaded with standing and ambulation. Patient blood pressure was in 134 on presentation but orthostatic dropped to 86 systolic with symptomatic dizziness/lightheadedness. EKG did not show any acute ST elevations. Has negative initial troponin. Normal white count, chemistry profile showed mild hyperkalemia but is getting fluids. I believe with it will improve on its own as it is only 5.5. Chest x-ray negative for any acute cardiopulmonary findings. Patient later on reported that he has not been eating drinking well for the la st 3 days. This could be reason for his symptoms. I believe patient needs IV hydration and PT OT. Discussed with Dr. Chinchilla and patient is being admitted. Discussed with .: Brandy Will see patient in: hospital (observation) Counseled pt/family regarding: lab results, diagnosis, rad results - Departure Departure Disposition: Observation Clinical Impression: Orthostatic dizziness, Generalized weakness Condition: Stable Critical Care Time: No Referrals: ANN WREN [Primary Care Provider] -
[2020-06-04 18:48] LABS: INFLUENZA A NEGATIVE (NEGATIVE); INFLUENZA B NEGATIVE (NEGATIVE); RESPIRATORY SYNCTIAL VIRUS NEGATIVE (Negative); SARS-CoV-2 Xpert Express NEGATIVE (NEGATIVE)
[2020-06-04] MEDS ORDERED: Zofran 4 MG/2 ML VIAL IV PRN (20:04)
[2020-06-04] MEDS ORDERED: DUONEB 0.5-3 MG/3 ml Neb IH PRN (20:04)
[2020-06-04] MEDS ORDERED: TYLENOL 325 MG PO PRN (20:04)
[2020-06-04 21:34] LABS: Appearance CLEAR (CLEAR); Bacteria NONE SEEN /HPF (NEGATIVE); Bilirubin NEGATIVE (NEGATIVE); Blood NEGATIVE Ery/ul (0-5); Glucose NEGATIVE (NEGATIVE); Ketones NEGATIVE (NEGATIVE); Leukocyte Esterase NEGATIVE (NEGATIVE); Mucus SLIGHT /HPF (NEGATIVE); Nitrite NEGATIVE (NEGATIVE); Protein,Urine Dip NEGATIVE (Negative); RBC 0-2 /HPF (0-2); Specific Gravity 1.016 (1.005-1.025); Urobilinogen 2 mg/dL (0-1); WBC 0-2 /HPF (0-5)
[2020-06-04] MEDS ORDERED: Toprol-Xl 25MG Tablets PO ONE (23:58)
[2020-06-05] MEDS ORDERED: ULTRAM 50 MG PO PRN
[2020-06-05] MEDS: Sodium Chloride 0.9% 1000 ML 1,000 ML IV SCH ×3 (00:07→20:22)
[2020-06-05 04:55] LABS: Absolute Neutrophil Ct (ANC) 2.03 (1.4-6.9); BASOPHIL % 0.5 % (0.0-0.4); Basophil (Absolute #) 0.02 (0-0.4); Eosinophil % 2.4 % (0.00-5.0); Hematocrit 35.9 % (42-50); Hemoglobin 11.6 gm/dl (12.5-18.0); Lymphocyte (Absolute #) 1.38 (1.0-4.6); Lymphocytes % 33.7 % (24.0-44.0); Mean Cell Volume 98.4 fl (78-100); Mean Corpuscular Hemoglobin 31.8 pg (26-32); Mean Corpuscular Hgb Concent. 32.3 g/dl (32-36); Mean Platelet Volume 9.2 fl (7.5-11.0); Monocyte (Absolute #) 0.57 (0.0-1.3); Monocytes % 13.9 % (0.0-12.0); Neutrophil % 49.5 % (36.0-66.0); Platelet Count 164 K/mm3 (150-450); Red Blood Count 3.65 M/mm3 (4.1-5.6); Red Cell Distribution Width 12.4 % (11.5-14.0); White Blood Count 4.1 K/mm3 (4.0-10.5)
[2020-06-05 05:08] LABS: ALBUMIN 3.1 g/dL (3.5-5.0); ALKALINE PHOSPHATASE 50 U/L (38-126); ANION GAP 11.1 MEQ/L (5-15); BLOOD UREA NITROGEN 17 mg/dL (9-20); CHLORIDE 104 mmol/L (98-107); Calcium 9.2 mg/dL (8.4-10.2); Carbon Dioxide 26 mmol/L (22-30); Creatinine 1 1.12 mg/dL (0.66-1.25); EST GLOMERULAR FILTRATION RATE > 60.0 ML/MIN; Glucose 90 mg/dL (74-106); Potassium 4.3 mmol/L (3.5-5.1); SGOT/AST 25 U/L (17-59); SGPT/ALT 16 U/L (0-50); SODIUM 137 mmol/L (137-145); Total Protein 5.6 g/dL (6.3-8.2)
[2020-06-05] MEDS ORDERED: NON-FORMULARY ITEM (Dextran 70/Hypromellose [Artificial Tears] 1 DROP) OP PRN (07:53)
[2020-06-05] MEDS ORDERED: Artificial Tears 15 ML OP PRN (08:04)
[2020-06-05] MEDS: PROTONIX 40 MG IV IV SCH (09:54)
[2020-06-05] MEDS: ceLEXa 20 MG PO SCH (09:55)
[2020-06-05] MEDS ORDERED: Toprol Xl 50 MG PO SCH (10:00)
[2020-06-05] MEDS: Toprol Xl 50 MG PO SCH (20:23)
[2020-06-06] MEDS: Sodium Chloride 0.9% 1000 ML 1,000 ML IV SCH (04:22)
[2020-06-06 07:19] VITALS: O2SAT 98
[2020-06-06] MEDS: Toprol Xl 50 MG PO SCH (10:15)
[2020-06-06] MEDS: ceLEXa 20 MG PO SCH (10:16)
[2020-06-06] MEDS: PROTONIX 40 MG IV IV SCH (10:17)
--- NOTE | 2020-06-06 10:57 | PCM.DCORD ---
- Discharge Disposition: HOME HEALTH SERVICE Condition: Stable Prescriptions: New Metoprolol Succinate 50 mg [Toprol Xl 50 MG] 25 mg PO DAILY #30 tablet.sa Continue Citalopram Hydrobromide 20 mg* [ceLEXa 20 MG] 10 mg PO DAILY #30 tablet Discontinued Metoprolol Succinate 50 mg [Toprol Xl 50 MG] 50 mg PO DAILY #30 tablet Losartan Potassium 50 mg [Cozaar 50 MG] 50 mg PO DAILY HydrALAzine HCL 25 MG TAB [Apresoline 25 MG TABLET] 25 mg PO DAILY Acetaminophen 500 mg [Tylenol Extra Strength 500 mg] 500 mg PO Q4H PRN PRN Reason: Pain No Action Tramadol HCl 50 mg [Ultram 50 mg] 50 mg PO DAILY PRN PRN Reason: Pain Potassium Bicarbonate 25 MEQ [K-Lyte 25 Meq] 25 meq PO DAILY Dextran 70/Hypromellose [Artificial Tears] 1 drop Q4H PRN PRN Reason: Allergies Additional Instructions: you may reach Dr Escobedo for any problems at [phone] [facility]. HOLD potassium until seen by your PCP. Follow up with: AZUL ESCOBDEO DO [Primary Care Provider] -
--- NOTE | 2020-06-06 11:08 | PCM.SSS ---
History of Present Illness - Chief Complaint Chief Complaint: orthostatic dizziness History of Present Illness: is a 69 year old male who presented to ER after a fall at home,states he is dizzy upon standing . Patient is followed at the [place] ,PCP there is Dr Alfaro.He has been in Rehab at [facility] since last admission to [facility] was not able to admit him at the time of his last admission in Hospital and Rehab.Patient is an alcoholic but since he stopped drinking his B/P has come down and is probably the cause of the orthostatic hypotension. He also has Hx anxiety /depression and malnutrition . Serum albumin is 3.1. Potassium was elevated on admission =5.5.Patient lives alone.He c/o generalized weakness but no focal neurologic changes. - Review of Systems Constitutional: Fatigue Eyes: No Symptoms Ears, Nose, & Throat: No Symptoms Respiratory: No Symptoms Cardiac: Orthopnea Abdominal/Gastrointestinal: No Symptoms Genitourinary Symptoms: No Symptoms Musculoskeletal: Fall Skin: No Symptoms Neurological: Dizziness Psychological: Alcohol Abuse (recovering), Anxiety, Depression Endocrine: No Symptoms Hematologic/Lymphatic: No Symptoms Immunological/Allergic: No Symptoms Medications & Allergies Home Medications: Home Medication List Dextran 70/Hypromellose [Artificial Tears] 1 drop Q4H PRN 06/04/20 [History Confirmed 06/04/20] Tramadol HCl 50 mg [Ultram 50 mg] 50 mg PO DAILY PRN 06/04/20 [History Confirmed 06/04/20] Citalopram Hydrobromide 20 mg* [ceLEXa 20 MG] 10 mg PO DAILY #30 tablet 06/06/20 [Rx] Metoprolol Succinate 50 mg [Toprol Xl 50 MG] 25 mg PO DAILY #30 tablet.sa 06/06/20 [Rx] Allergies/Adverse Reactions: Allergies Allergy/AdvReac Type Severity Reaction Status Date / Time No Known Drug Allergies Allergy Verified 05/06/20 14:45 - Past Medical History Past Medical History: Yes Neurological History: No Pertinent History ENT History: No Pertinent History Cardiac History: Hypertension Respiratory History: No Pertinent History Endocrine Medical History: No Pertinent History Musculoskelatal History: No Pertinent History GI Medical History: Hernia History: No Pertinent History Pyscho-Social History: Depression Male Reproductive Disorders: No Pertinent History Comment: alcoholism, smoker - Past Surgical History Past Surgical History: No Neuro Surgical History: No Pertinent History Cardiac History: No Pertinent History Respiratory Surgery: No Pertinent History GI Surgical History: No Pertinent History Genitourinary Surgical Hx: No Pertinent History Musculskeletal Surgical Hx: No Pertinent History Male Surgical History: No Pertinent History Other Surgical History: Left eye surgery-ocular lens implant - Social History Smoking Status: Current every day smoker How long have you smoked: 46 years Exposure to second hand smoke: No Alcohol: Daily Drug Use: none - Physical Exam Vital Signs: Vital Signs - 24 hr Temp Pulse Resp BP Pulse Ox 06/06/20 08:00 20 06/06/20 07:00 98.3 F 78 20 132/90 98 06/06/20 03:00 98.1 F 77 20 144/78 99 06/05/20 23:00 97.6 F 84 18 141/83 98 06/05/20 19:00 97.9 F 77 17 105/65 98 06/05/20 16:00 18 06/05/20 15:00 98.0 F 80 18 126/71 99 06/05/20 12:00 16 06/05/20 11:35 98.2 F 78 16 92/53 99 General Appearance: no apparent distress, thin Neurologic Exam: alert, oriented x 3, cooperative, hoop riveter II-XII nml as tested, normal mood/affect, nml cerebellar function, nml station & gait Eye Exam: eyes nml inspection Ears, Nose, Throat Exam: normal ENT inspection Neck Exam: normal inspection Respiratory Exam: diminished breath sounds (bases) Cardiovascular Exam: regular rate/rhythm Gastrointestinal/Abdomen Exam: soft (nontender) Back Exam: normal inspection Extremity Exam: normal inspection Skin Exam: normal color Results - Radiology Impressions Radiology Exams & Impressions: Radiology Procedures Category Date Time Status CHEST 1 VIEW (PORTABLE) Stat Exams 06/04/20 16:02 Completed Assessment/Plan (1) Generalized weakness Status: Resolved Assessment & Plan: improved with hydratu=ion and decrease in B/P meds Code(s): R53.1 - WEAKNESS (2) Orthostatic dizziness Status: Resolved Assessment & Plan: improved with hydration and reduction of B.P meds Code(s): R42 - DIZZINESS AND GIDDINESS (3) Fall Status: Acute Assessment & Plan: at home due to orthostatic HTN Code(s): W19.XXXA - UNSPECIFIED FALL, INITIAL ENCOUNTER (4) Alcohol abuse Status: Chronic Code(s): F10.10 - ALCOHOL ABUSE, UNCOMPLICATED Hospital Summary - Vitals & Intake/Output Vital Signs: Vital Signs Temperature 98.3 F 06/06/20 07:00 Pulse Rate 78 06/06/20 07:00 Respiratory Rate 20 06/06/20 08:00 Blood Pressure 132/90 06/06/20 07:00 O2 Sat by Pulse Oximetry 98 06/06/20 07:00 Intake & Output: Intake & Output 06/03/20 06/04/20 06/05/20 06/06/20 11:59 11:59 11:59 11:59 Intake Total 1164 1310 Balance 1164 1310 Weight 64.5 kg 64.9 kg - Lab Result Diagrams: 06/05/20 04:20 06/05/20 04:20 - Radiology Exams Ordered Rad Exams-Entire Visit: Radiology Procedures Category Date Time Status CHEST 1 VIEW (PORTABLE) Stat Exams 06/04/20 16:02 Completed - Procedures and Test Procedures and Tests throughout Hospitalization: Therapy Orders & Screens 06/04/20 21:32 Respiratory Therapy Consult ONCE Comment: Reason For Exam: Diagnosis: orthostatic dizziness 06/04/20 21:39 OT Screen per Nursing Assess ONCE Comment: Protocol Order Physician Instructions: Greater than 3 points order OT Admission Screening Reason For Exam: Triggered on Admission Diagnosis: orthostatic dizziness Open Wound/Cellutlitis/Pressure Ulcers: No Acute Fx/ORIF/Change in wt bearing status: No Severe MUSCULOSKELETAL pain: No ADL Dysfunction: Yes Acute CVA w/Hemiparesis/Hemiplegia: No Decreased Functional Mobility/Strength: Yes Sprain/Strain: No Acute Post-op Mobility Dysfunction: No Total Points: 4 PT Screen per Nursing Assess ONCE Comment: Protocol Order Physician Instructions: Greater than 3 points order PT Admission Screenin Reason For Exam: Triggered on Admission Diagnosis: orthostatic dizziness Open Wound/Cellutlitis/Pressure Ulcers: No Acute Fx/ORIF/Change in wt bearing status: No Severe MUSCULOSKELETAL pain: No ADL Dysfunction: Yes Acute CVA w/Hemiparesis/Hemiplegia: No Decreased Functional Mobility/Strength: Yes Sprain/Strain: No Acute Post-op Mobility Dysfunction: No Total Points: 4 Smoking Cessation Education ONCE Comment: Diagnosis: orthostatic dizziness Smoking Status: Current every day smoker How long have you smoked: 46 years Have you smoked in the past 12 months: Yes Approximately how many cigarettes per day: 7-8 Do you dip or chew tobacco: No 06/05/20 10:19 Respiratory Therapy Assessment DAILY Comment: Diagnosis: orthostatic dizziness - Discharge Disposition: HOME HEALTH SERVICE Condition: Stable Prescriptions: New Metoprolol Succinate 50 mg [Toprol Xl 50 MG] 25 mg PO DAILY #30 tablet.sa Continue Tramadol HCl 50 mg [Ultram 50 mg] 50 mg PO DAILY PRN PRN Reason: Pain Dextran 70/Hypromellose [Artificial Tears] 1 drop Q4H PRN PRN Reason: Allergies Citalopram Hydrobromide 20 mg* [ceLEXa 20 MG] 10 mg PO DAILY #30 tablet Discontinued Metoprolol Succinate 50 mg [Toprol Xl 50 MG] 50 mg PO DAILY #30 tablet Potassium Bicarbonate 25 MEQ [K-Lyte 25 Meq] 25 meq PO DAILY Losartan Potassium 50 mg [Cozaar 50 MG] 50 mg PO DAILY HydrALAzine HCL 25 MG TAB [Apresoline 25 MG TABLET] 25 mg PO DAILY Acetaminophen 500 mg [Tylenol Extra Strength 500 mg] 500 mg PO Q4H PRN PRN Reason: Pain Instructions: Dizziness, Nonvertigo, (DC) Additional Instructions: you may reach Dr Escobedo for any problems at [phone] [facility]. HOLD potassium until seen by your PCP. Follow up with: AZUL ESCOBEDO DO [Primary Care Provider] - Forms: Discharge Instructions
[2020-06-06 13:28] VITALS: BP 133/84; PULSE 82
== END 2020-06-06 15:30 | disposition home health service (06) ==
LOC: ED 15:38 → MED SURG 19:42
PROVIDERS: ADMIT Family Medicine; ATTEND Family Medicine
DX: R42 Dizziness and giddiness (principal); I95.1 Orthostatic hypotension; W19.XXXA Unspecified fall, initial encounter; Z79.899 Other long term (current) drug therapy; F10.20 Alcohol dependence, uncomplicated; I10 Essential (primary) hypertension; F17.200 Nicotine dependence, unspecified, uncomplicated; Z20.828 Contact with and (suspected) exposure to other viral communicable diseases
CPT/HCPCS: 0241U; 36000; 36415; 71045; 80053; 81001; 83605; 83735; 84484; 85025; 93005; 93041; 93268; 94760; 96360; 99285; G0378; A9270-GY